=== PATIENT | male | born 1965 | race Caucasian/White ===

== ENCOUNTER 2020-06-21 07:12 | Outpatient (REF) | payer MEDICAID, SELFPAY ==
--- NOTE | 2020-06-21 07:20 | MR_ITS ---
EXAMINATION: MR BRAIN WITHOUT CONTRAST CLINICAL INFORMATION: Cerebral microvascular disease, stroke. COMPARISON: Head CT 08/06/2017. TECHNIQUE: Multiplanar multisequence MRI of the brain was performed without contrast. FINDINGS: There is no acute infarct, hemorrhage, mass, or extra-axial fluid collection. Mild to moderate patchy foci of T2 hyperintensity are seen in the bilateral cerebral white matter most compatible with chronic microangiopathy. There is mild degree of brain parenchymal volume loss with commensurate prominence of the ventricles and sulci. The intradural right vertebral artery flow void is absent compatible with slow flow or occlusion. The remainder of the major arterial flow voids are present. The orbital contents appear normal. IMPRESSION: No acute intracranial abnormality identified. Nonspecific mild to moderate foci of T2 hyperintensity seen in the cerebral white matter presumably reflecting chronic microangiopathy. Intradural right vertebral artery flow void is absent compatible with slow flow or occlusion.
== END 2020-06-21 07:13 | disposition home or self-care (01) ==
LOC: HO.MRI 07:12
PROVIDERS: Visit Provider Psychiatry & Neurology Neurology
DX: I67.9 Cerebrovascular disease, unspecified (principal); I63.9 Cerebral infarction, unspecified
CPT/HCPCS: 70551

== ENCOUNTER 2020-07-12 14:00 | Outpatient (REF) | payer MEDICAID, SELFPAY ==
[2020-07-12 15:07] LABS: Estimated Average Glucose 111 mg/dL; Hemoglobin A1c % 5.5 %
== END 2020-07-12 14:01 | disposition home or self-care (01) ==
LOC: HO.LAB 14:00
DX: E11.9 Type 2 diabetes mellitus without complications (principal)
CPT/HCPCS: 83036

== ENCOUNTER → 2021-03-24 09:21 | Outpatient (BNVA) | payer MEDICAID, SELFPAY | PROVIDERS: Visit Provider Urology | DX: E29.1 Testicular hypofunction (principal); N52.9 Male erectile dysfunction, unspecified | CPT/HCPCS: 99202 ==

== ENCOUNTER → 2021-05-02 15:09 | Outpatient (BNVA) | payer MEDICAID, SELFPAY | PROVIDERS: Visit Provider Urology | DX: N52.9 Male erectile dysfunction, unspecified (principal); E29.1 Testicular hypofunction | CPT/HCPCS: 99212 ==

== ENCOUNTER → 2021-07-21 15:07 | Outpatient (BNVA) | payer MEDICAID, SELFPAY | PROVIDERS: Visit Provider Urology | DX: N52.9 Male erectile dysfunction, unspecified (principal); E29.1 Testicular hypofunction | CPT/HCPCS: 99212 ==

== ENCOUNTER → 2021-08-16 13:19 | Outpatient (BNVA) | payer MEDICAID, SELFPAY | PROVIDERS: Visit Provider Urology ==

== ENCOUNTER → 2022-02-16 10:43 | Outpatient (BNVA) | payer MEDICAID, SELFPAY | PROVIDERS: PCP Family Medicine; Visit Provider Urology | DX: N52.9 Male erectile dysfunction, unspecified (principal) | CPT/HCPCS: 99212 ==

== ENCOUNTER → 2023-02-27 14:57 | Outpatient (BNVA) | payer OTHER, SELFPAY | PROVIDERS: PCP Family Medicine; Visit Provider Urology | DX: N52.9 Male erectile dysfunction, unspecified (principal); E29.1 Testicular hypofunction | CPT/HCPCS: 99212 ==

== ENCOUNTER 2023-04-30 13:06 | Outpatient (AMB) | payer OTHER, SELFPAY ==
--- NOTE | 2023-04-30 13:06 | MHC.OFFVIS ---
Intake Intake Visit Reasons: 2M Testosterone(set) Intake Note: Patient is present for Telephone Follow Up Testosterone Urology Med: Sildenafil, Testosterone Antibiotic Allergy: Sulfa antibiotics Blood Thinner: None Pharmacy: [facility] Allergies prednisone [PREDNISONE] Allergy (Severe, Verified 04/30/23 13:11) SEVER HYPERGLYCEMIA Sulfa (Sulfonamide Antibiotics) [SULFA (SULFONAMIDE ANTIBIOTICS)] Allergy (Intermediate, Verified 04/30/23 13:11) HIVES sulfamethoxazole Allergy (Unknown, Verified 04/30/23 13:11) Unknown intolerance to colchicine and Allergy (Unknown, Uncoded 04/30/23 13:11) Unknown Medication List - Last Reconciled 04/30/23 by Johnathon Bliss MD allopurinol 300 mg PO DAILY alprazolam (Xanax) 0.5 mg PO BID bupropion HCl (Wellbutrin XL) 300 mg PO QAM cholecalciferol (vitamin D3) 50 mcg PO DAILY clomiphene citrate 50 mg PO .mon,wed,fri 90 days cyanocobalamin (vitamin B-12) 1,000 mcg PO DAILY metoprolol succinate ER 25 mg PO DAILY mycophenolate mofetil (CellCept) 500 mg PO BID mycophenolate mofetil 0 mg PO needle (disp) 18 G (BD Regular Bevel [place]) As directed once per week for injection needle (disp) 22 G (BD Regular Bevel [place]) as directed once per week for injection nifedipine ER 30 mg PO DAILY sildenafil 100 mg PO DAILY PRN 30 days syringe (disposable) (BD Luer-Gregg Syringe) Testosterone injection weekly tacrolimus (Prograf) 1 mg PO Q12H testosterone cypionate (Depo-Testosterone) 80 mg (0.4 mL) subcut QWEEK 4 weeks trazodone 25 mg PO DAILY HPI HPI Comments History of Present Illness Details Pilar is a pleasant male. He is a patient of Dr Remy. He is seen for the following urologic conditions - erectile dysfunction - prior borderline, low testosterone medical background significant for liver transplantation performed 1992. long-term immunosuppression. Telemedicine Evaluation 15 min Consultation Doximity Argenis Video attempted Good response to restarting testosterone T level 470 Did ask about hCG Currently unavailable Hypogonadism Currently not on replacement Initial T level of 340, free T 7.5 which is in normal range and low sex hormone binding globulin which explains low total T but normal free T Labs - T 254 F 4.5 L 6.1 07/06 394 F 3.9 L 4.4, 02/04 T 341 F 7, 09/06 T 282 F 6, 04/07 T 470 Previous trial of clomiphene unsuccessful, previous testosterone replacement Erectile dysfunction Sildenafil prescription successful [facility] Medical History Depression Erectile dysfunction Gout Obsessive compulsive personality disorder Olecranon bursitis of right elbow Turf toe Surgical History Liver transplant status Social History Alcohol intake: never Patient Tobacco Use Status: Never used Tobacco Review of Systems Const All systems reviewed & are unremarkable except as noted in HPI and below Reports no additional complaints Resp Reports no additional complaints GI Reports no additional complaints Reports as per HPI Musc Reports no additional complaints Physical Exam Telemedicine evaluation Appropriate responses Regular breathing rate and rhythm HEENT Head: Yes normal to inspection Ears: hearing grossly normal bilaterally Eyes General: appearance normal, both eyes and all related structures Neck Neck: Yes normal visual inspection Chest Chest palpation & inspection: normal inspection of the chest Resp Effort & Inspection: normal respiratory effort and able to speak in complete sentences Assessment & Plan Assessment & Plan (1) Erectile dysfunction: Code(s): N52.9 - Male erectile dysfunction, unspecified (2) Hypogonadism in male: Code(s): E29.1 - Testicular hypofunction Plan Six month follow-up Orders: Orders Prostate Specific Antigen 6 Months E29.1 - Testicular hypofunction Testosterone, Total 6 Months E29.1 - Testicular hypofunction Complete Blood Count no Diff 6 Months E29.1 - Testicular hypofunction Medications: Discontinued clomiphene citrate Discontinued Reason: Patient Completed Course 50 mg PO .mon,wed,fri 40 tabs 0RF 90 days E29.1 - Testicular hypofunction Patient Instructions: Imaging studies, laboratory and physical exam results were discussed and reviewed in detail. No major barriers to patient understanding were identified. An opportunity to ask questions regarding the treatment plan was provided. All questions were answered. The patient expressed understanding and agreement with the above treatment plan. The patient is aware they should contact our office by phone for worsening of their current condition or the appearance of new urologic symptoms. Compliance is encouraged with any medications and followup testing that is ordered. It is a privilege to participate in the urologic care of your patient. If you have any questions or concerns regarding treatment for the above conditions, or other urologic issues, please do not hesitate to contact me. The office telephone contact is [phone]. This note is constructed using voice recognition software. While every effort has been made to ensure accuracy line assembly utility worker errors may have been included. Yours sincerely, Dr Johnathon Bliss MD, [facility] - Urology Providers of Expert, Compassionate Care for the Genitourinary System Telehealth Telehealth Location of provider rendering services: practice address Location of patient: address on file Patient Identification confirmed using: Name, : Yes Telehealth method: voice only Patient verbally consented to treatment: Yes Patient verbally consented to billing insurance company: Yes Patient informed of any privacy concerns related to visit: Yes Coding Level of Care Code Tele Est Pt Level 3 (92731) Diagnoses Erectile dysfunction N52.9 Hypogonadism in male E29.1
== END 2023-04-30 13:34 | disposition home or self-care (01) ==
LOC: HO.HUSH 13:06
PROVIDERS: PCP Family Medicine; Visit Provider Urology
DX: N52.9 Male erectile dysfunction, unspecified (principal); E29.1 Testicular hypofunction
CPT/HCPCS: 99213

== ENCOUNTER → 2023-04-30 13:06 | Outpatient (BNVA) | payer OTHER, SELFPAY | PROVIDERS: PCP Family Medicine; Visit Provider Urology ==

== ENCOUNTER 2023-12-26 10:01 | Outpatient (AMB) | payer OTHER, SELFPAY ==
--- NOTE | 2023-12-26 10:07 | A.OFFVIS_ITS ---
Intake Intake Visit Reasons: 8M CBC/PSA/Testo(set)Confirmed Intake Note: Patient presents today for a follow up on: CBC/NET APPLICATION SUPPORT SPECIALIST/Testo Meds- Sildenafil, Testosterone, Allergies to Antibiotic- Sulfa Blood Thinner- None Chemists Required: No Accompanied by: Self / Same As Patient Allergies prednisone [PREDNISONE] Allergy (Severe, Verified 12/26/23 10:31) SEVER HYPERGLYCEMIA Sulfa (Sulfonamide Antibiotics) [SULFA (SULFONAMIDE ANTIBIOTICS)] Allergy (Intermediate, Verified 12/26/23 10:31) HIVES sulfamethoxazole Allergy (Unknown, Verified 12/26/23 10:31) Unknown intolerance to colchicine and Allergy (Unknown, Uncoded 12/26/23 10:31) Unknown Medication List - Last Reconciled 12/26/23 by Johnathon Bliss MD allopurinol 300 mg PO DAILY bupropion HCl XL (Wellbutrin XL) 300 mg PO QAM cholecalciferol (vitamin D3) 50 mcg PO DAILY cyanocobalamin (vitamin B-12) 1,000 mcg PO DAILY mycophenolate mofetil (CellCept) 500 mg PO BID needle (disp) 18 G (BD Regular Bevel [place]) As directed once per week for injection needle (disp) 22 G as directed once per week for injection nifedipine ER 30 mg PO DAILY sildenafil 100 mg PO DAILY PRN 30 days syringe with needle, safety As directed for weekly Testosterone injection tacrolimus (Prograf) 1 mg PO Q12H testosterone cypionate (Depo-Testosterone) 80 mg (0.4 mL) subcut QWEEK 4 weeks trazodone 25 mg PO DAILY HPI HPI Comments History of Present Illness Details Pilar is a pleasant male. He is a patient of Dr Remy. He is seen for the following urologic conditions - erectile dysfunction - prior borderline, low testosterone medical background significant for liver transplantation performed 1992. long- term immunosuppression. Continue good response to testosterone T level 530, PSA 0.5 Continue six-month follow-up with labs Hypogonadism Currently on replacement Initial T level of 340, free T 7.5 which is in normal range and low sex hormone binding globulin which explains low total T but normal free T Labs - T 254 F 4.5 L 6.1 07/06 394 F 3.9 L 4. 4, 02/04 T 341 F 7, 09/06 T 282 F 6, 04/07 T 470, 01/07 T 530 PSA 0.5 Previous trial of clomiphene unsuccessful, previous testosterone replacement Erectile dysfunction Sildenafil prescription successful [facility] Medical History Obsessive compulsive personality disorder Depression Erectile dysfunction Olecranon bursitis of right elbow Turf toe Gout Surgical History Liver transplant status Social History Alcohol intake: never Patient Tobacco Use Status: Never used Tobacco Review of Systems Const Denies chills and Denies fever(s) Card Reports no additional complaints and Denies syncope Resp Denies cough GI Denies abdominal pain and Denies heartburn Reports as per HPI and Denies change in libido Neuro Denies syncope Psych Denies change in libido Endo Denies change in libido Physical Exam Const General: cooperative, healthy appearing, comfortable and no acute distress Orientation/consciousness: patient oriented x3 HEENT Face and sinus: Yes normal facial exam Mouth: moist mucous membranes Neck Neck: Yes normal visual inspection, Yes full ROM and Yes trachea midline Chest Chest palpation & inspection: normal inspection of the chest Resp Effort & Inspection: normal respiratory effort, able to speak in complete sentences and no respiratory distress GI Inspection: Yes normal to inspection Back/Spine/Pelvis Cervical Spine: normal cervical lordosis Thoracic/Lumbar Spine: thoracic and lumbar spine normal to inspection Skin General skin exam: no rashes or lesions noted Neuro General: patient oriented x3, gait normal, tone normal and moves all extremities Extrem General: Yes normal to inspection and Yes capillary refill normal Assessment & Plan Assessment & Plan (1) Erectile dysfunction: Code(s): N52.9 - Male erectile dysfunction, unspecified (2) Hypogonadism in male: Code(s): E29.1 - Testicular hypofunction Plan Six-month follow-up Orders: Orders Testosterone, Total 6 Months E29.1 - Testicular hypofunction Complete Blood Count no Diff 6 Months E29.1 - Testicular hypofunction Prostate Specific Antigen 6 Months E29.1 - Testicular hypofunction Medications: Refilled testosterone cypionate (Depo-Testosterone) Weekly injection Remember lab work 2 weeks before office visit 80 mg (0.4 mL) subcut QWEEK 4 weeks 4 mL 5RF E29.1 - Testicular hypofunction, [id number] Patient Instructions: Imaging studies, laboratory and physical exam results were discussed and reviewed in detail. No major barriers to patient understanding were identified. An opportunity to ask questions regarding the treatment plan was provided. All questions were answered. The patient expressed understanding and agreement with the above treatment plan. The patient is aware they should contact our office by phone for worsening of their current condition or the appearance of new urologic symptoms. Compliance is encouraged with any medications and followup testing that is ordered. It is a privilege to participate in the urologic care of your patient. If you have any questions or concerns regarding treatment for the above conditions, or other urologic issues, please do not hesitate to contact me. The office telephone contact is [phone]. This note is constructed using voice recognition software. While every effort has been made to ensure accuracy humanities division chair errors may have been included. Yours sincerely, Dr Johnathon Bliss MD, [facility] - Urology Providers of Expert, Compassionate Care for the Genitourinary System Coding Level of Care Code Est Pt Level 3 (83156) Diagnoses Erectile dysfunction N52.9 Hypogonadism in male E29.1
== END 2023-12-26 10:57 | disposition home or self-care (01) ==
PROVIDERS: PCP Family Medicine; Visit Provider Urology
DX: N52.9 Male erectile dysfunction, unspecified (principal); E29.1 Testicular hypofunction
CPT/HCPCS: 99213

== ENCOUNTER → 2023-12-26 10:01 | Outpatient (BNVA) | payer OTHER, SELFPAY | PROVIDERS: PCP Family Medicine; Visit Provider Urology | DX: E29.1 Testicular hypofunction (principal); N52.9 Male erectile dysfunction, unspecified; Z79.899 Other long term (current) drug therapy; Z94.4 Liver transplant status | CPT/HCPCS: 99212 ==

== ENCOUNTER 2024-06-26 15:08 | Outpatient (AMB) | payer OTHER, SELFPAY ==
--- NOTE | 2024-06-26 15:48 | MHC.OFFVIS ---
Intake Visit Reasons: 6m PSA/Testo(set) Intake Note: Patient is Present for Follow Up Urology Medication: Sildenafil, Testosterone Antibiotic Allergies: Sulfa Blood Thinners: None Allergies prednisone [PREDNISONE] Allergy (Severe, Verified 12/26/23 10:31) SEVER HYPERGLYCEMIA Sulfa (Sulfonamide Antibiotics) [SULFA (SULFONAMIDE ANTIBIOTICS)] Allergy (Intermediate, Verified 12/26/23 10:31) HIVES sulfamethoxazole Allergy (Unknown, Verified 12/26/23 10:31) Unknown intolerance to colchicine and Allergy (Unknown, Uncoded 12/26/23 10:31) Unknown Medication List - Last Reconciled 06/26/24 by Johnathon Bliss MD allopurinol 300 mg PO DAILY bupropion HCl XL (Wellbutrin XL) 300 mg PO QAM cholecalciferol (vitamin D3) 50 mcg PO DAILY cyanocobalamin (vitamin B-12) 1,000 mcg PO DAILY mycophenolate mofetil (CellCept) 500 mg PO BID needle (disp) 18 G (BD Regular Bevel [place]) As directed once per week for injection needle (disp) 22 G as directed once per week for injection nifedipine ER 30 mg PO DAILY sildenafil 100 mg PO DAILY PRN 30 days syringe with needle, safety As directed for weekly Testosterone injection tacrolimus (Prograf) 1 mg PO Q12H testosterone cypionate (Depo-Testosterone) 80 mg (0.4 mL) subcut QWEEK 4 weeks trazodone 25 mg PO DAILY HPI Comments Details: Pilar is a pleasant male. He is a patient of Dr Remy. He is seen for the following urologic conditions - erectile dysfunction - prior borderline, low testosterone medical background significant for liver transplantation performed 1992. long-term immunosuppression. Continue good response to testosterone T level 07/09 - 530, PSA 0.5 Continue six-month follow-up with labs Hypogonadism Currently on replacement - testosterone injection 80 mg weekly Initial T level of 340, free T 7.5 which is in normal range and low sex hormone binding globulin which explains low total T but normal free T Labs - T 254 F 4.5 L 6.1 07/06 394 F 3.9 L 4.4, 02/04 T 341 F 7, 09/06 T 282 F 6, 04/07 T 470, 01/07 T 530 PSA 0.5, 07/09 T 590 Previous trial of clomiphene unsuccessful, previous testosterone replacement Erectile dysfunction Sildenafil prescription successful PFSH Medical History Obsessive compulsive personality disorder Depression Erectile dysfunction Olecranon bursitis of right elbow Turf toe Gout Surgical History Liver transplant status Social History Alcohol intake: never Patient Tobacco Use Status: Never used Tobacco Review of Systems Const Denies chills and Denies fever(s) Card Reports no additional complaints and Denies syncope Resp Denies cough GI Denies abdominal pain and Denies heartburn Reports as per HPI and Denies change in libido Neuro Denies syncope Psych Denies change in libido Endo Denies change in libido Physical Exam Const General: cooperative, healthy appearing, comfortable and no acute distress Orientation/consciousness: patient oriented x3 HEENT Face and sinus: Yes normal facial exam Mouth: moist mucous membranes Neck Neck: Yes normal visual inspection, Yes full ROM and Yes trachea midline Chest Chest palpation & inspection: normal inspection of the chest Resp Effort & Inspection: normal respiratory effort, able to speak in complete sentences and no respiratory distress GI Inspection: Yes normal to inspection Back/Spine/Pelvis Cervical Spine: normal cervical lordosis Thoracic/Lumbar Spine: thoracic and lumbar spine normal to inspection Skin General skin exam: no rashes or lesions noted Neuro General: patient oriented x3, gait normal, tone normal and moves all extremities Extrem General: Yes normal to inspection and Yes capillary refill normal Assessment & Plan Assessment & Plan (1) Hypogonadism in male: Code(s): E29.1 - Testicular hypofunction Category: Medical (2) Erectile dysfunction: Code(s): N52.9 - Male erectile dysfunction, unspecified Category: Medical Plan Six-month follow-up lab work tele Orders: Orders Testosterone, Total 6 Months E29.1 - Testicular hypofunction Prostate Specific Antigen 6 Months E29.1 - Testicular hypofunction Complete Blood Count no Diff 6 Months E29.1 - Testicular hypofunction Patient Instructions: Imaging studies, laboratory and physical exam results were discussed and reviewed in detail. No major barriers to patient understanding were identified. An opportunity to ask questions regarding the treatment plan was provided. All questions were answered. The patient expressed understanding and agreement with the above treatment plan. The patient is aware they should contact our office by phone for worsening of their current condition or the appearance of new urologic symptoms. Compliance is encouraged with any medications and followup testing that is ordered. It is a privilege to participate in the urologic care of your patient. If you have any questions or concerns regarding treatment for the above conditions, or other urologic issues, please do not hesitate to contact me. The office telephone contact is [phone]. This note is constructed using voice recognition software. While every effort has been made to ensure accuracy office auditor errors may have been included. Yours sincerely, Dr Johnathon Bliss MD, [facility] - Urology Providers of Expert, Compassionate Care for the Genitourinary System Coding Level of Care Code Est Pt Level 3 (91102) Diagnoses Hypogonadism in male E29.1 Erectile dysfunction N52.9
== END 2024-06-26 16:06 | disposition home or self-care (01) ==
PROVIDERS: PCP Family Medicine; Visit Provider Urology
DX: E29.1 Testicular hypofunction (principal); N52.9 Male erectile dysfunction, unspecified
CPT/HCPCS: 99213

== ENCOUNTER → 2024-06-26 15:08 | Outpatient (BNVA) | payer OTHER, SELFPAY | PROVIDERS: PCP Family Medicine; Visit Provider Urology | DX: E29.1 Testicular hypofunction (principal); N52.9 Male erectile dysfunction, unspecified | CPT/HCPCS: 99212 ==

== ENCOUNTER 2025-02-17 14:50 | Outpatient (AMB) | payer OTHER, SELFPAY ==
--- OUTSIDE RECORDS SUMMARY | 2025-02-17 14:55 | XMS_ITS | Clinical Summary ---
Author Organization [facility] Address [address] [place] [address] Phone Care Team Providers Care Replenishment Buyer Name Role Phone Jose Ford DO Primary Care Provider Allergies Active Allergy Reactions Criticality Noted Date Comments Amoxicillin-Pot Clavulanate Other (see comments) 11/08/2020 Prednisone Other (see comments) 11/04/2018 PT STATES BLOOD SUGAR GOES UP. Sulfa Antibiotics Rash Low 11/08/2020 Sulfamethoxazole-Trimet hoprim Other (see comments) 05/15/2021 Medications ARIPiprazole (ABILIFY) 2 MG tablet Take 1 tablet by mouth 1 (one) time each day Active B Complex capsule Take 1 tablet by mouth daily 1 Active NIFEdipine XL (PROCARDIA XL) 30 MG 24 hr tablet Take 30 mg by mouth 2 (two) times a day 1 Active mirtazapine (REMERON) 45 MG tablet Take 45 mg by mouth at bed time 1 Active ketoconazole (NIZORAL) 2 % shampoo SHAMPOO WITH EVERY DAY. LEAVE IN FOR 5 MINUTES THEN RINSE DIRECTED 1 Active buPROPion SR (WELLBUTRIN SR) 200 MG 12 hr tablet Take 200 mg by mouth 2 (two) times a day 1 Active cyanocobalamin (VITAMIN B-12) 1000 MCG tablet Take 1,000 mcg by mouth 1 (one) time each day 1 Active sildenafil (VIAGRA) 100 MG tablet TAKE 1 TABLET BY MOUTH DAILY NEEDED FOR SEXUAL ACTIVITY. ADMINISTER 60 MINUTES BEFORE INTENDED ACTIVITY 1 Active Testosterone 1.62 % gel APPLY 2 PUMPS TOPICALLY DAILY FOR 30 DAYS. ALTERNATE SHOULDERS ON ALTERNATE DAYS 1 Active traZODone (DESYREL) 100 MG tablet TAKE 3 TABLETS BY MOUTH EVERY NIGHT 2 Active tacrolimus (PROGRAF) 1 MG capsule Take 1 mg by mouth in the morning and 1 mg in the evening. 2mg in the am, 1 mgt pm daily. 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 Avoid Nephrotoxins Optimize BP and DM control Assessment & Plan (01/26/2024 11:40 PM EDT): Stable Creat 1.05, eGFR 83 Normal Lytes, No Anemia Check urine alb/creat ratio Hypertensive renal disease 11/08/2020 Proteinuria 11/08/2020 Disorder of kidney and/or ureter 07/26/2016 Hypertensive disorder 03/30/2016 Overview (01/26/2024): Follow low NA diet Avoid NSAIDs/OTC Decongestant Medications Target BP <120/80 Assessment & Plan (01/26/2024 11:42 PM EDT): Blood pressure well controlled On single therapy Nifedipine XL 30 mg QD No Edema No medication changes made Resolved Problems Problem Noted Date Diagnosed Date Resolved Date Hyperglycemia 10/17/2021 02/20/2022 H/O: liver recipient 11/08/2020 022 Gout 03/17/2014 02/20/2022 Encounters Date Type Department Care Team Description 02/07/2025 Orders Only [facility] [address] [address] Florence Vasquez ARNP Chronic kidney disease stage 2; Persistent proteinuria; Hypertensive disorder; Hypo-osmolality and hyponatremia 01/13/2025 Office Communication [facility] [address] [address] Russ Gabriel MD 01/11/2025 11:00 AM EDT Office Visit [facility] [address] [address] Russ Gabriel MD Persistent proteinuria (Primary Dx); Liver transplant status (HCC) 01/08/2025 Orders Only [facility] [address] [address] Florence Vasquez ARNP Hypo-osmolality and hyponatremia 01/07/2025 Documentation Only [facility] [address] [address] Cielo Ware MA 01/05/2025 Telephone [facility] [address] [address] Violette Gregory MA 01/05/2025 Telephone [facility] [address] [address] Violette Gregory MA 12/24/2024 4:15 PM EDT Office Visit [facility] [address] [address] Florence Vasquez ARNP Chronic kidney disease stage 2 (Primary Dx); Persistent proteinuria; Hypertensive disorder; Hypo-osmolality and hyponatremia from Last 3 Months Immunizations Immunization Administration Dates Next Due Influenza, Quadrivalent, Pre servative Free 07/26/2016 Influenza, Unspecified 09/11/2021,2019,08/08/2019,2017,07/05/2017,08/27/2015,07/01/2014,1 ,06/16/2012,05/22/2011, 010 Pfizer SARS-COV-2 05/09/2021,12/08/2020,11/18/19 21 Family History Medical History Relation Comments Heart disease Mother Relation Status Comments Father Unknown Mother Unknown Social History Tobacco Use Types Packs/Day Years Used Date Smoking Tobacco: Former Cigars Smokeless Tobacco: Never Tobacco Cessation:Counseling Given: Not Answered Alcohol Use Standard Drinks/Week Comments No 0 (1 standard drink = 0.6 oz pur e alcohol) Sex and Gender Information Value Date Recorded Sex Assigned at Not on file Legal Sex Male 4:40 PM EST Gender Identity Not on file Sexual Orientation Not on file Last Filed Vital Signs Vital Sign Reading Time Taken Comments Blood Pressure 198/80 01/11/2025 11:19 AM EDT Pulse 88 01/11/2025 11:19 AM EDT Temperature - - Respiratory Rate - - Oxygen Saturation 99% 01/11/2025 11:19 AM EDT Inhaled Oxygen Concentration - - Weight 67.4 kg (148 lb 9.6 oz) 01/11/2025 11:19 AM EDT Height 167.6 cm (5' 6 ) 05/15/2021 3:25 PM EDT Body Mass Index 23.98 05/15/2021 3:25 PM EDT Plan of Treatment Upcoming Encounters Date Type Department Care Team (Late st Contact Info) Description 02/22/2025 1:00 PM EDT Office Visit [facility] [address] [address] Florence Vasquez ARNP [address] [phone] Health Maintenance Due Date Last Done Comments Hepatitis B Vaccine (1 of 3 - 19+ 3-dose series) 1986 Pneumococcal Vaccine: 50+ Ye ars (1 of 2 - PCV) 1986 Colorectal Cancer Screening: Annual FOBT 2016 Colorectal Cancer Screening: Colonoscopy 2016 Colorectal Cancer Screening: Sigmoidoscopy 2016 Influenza Vaccine (Season Ended) 2025 09/11/2021, 07/25/2020, 08/08/2019, Additional history exists Procedures Procedure Name Priority Date/Time Associated Diagnosis Comments URINE ALBUMIN / CREATININE RATIO Routine 01/18/2025 11:44 AM EDT PROTEIN / CREATININE RATIO, URINE Routine 01/18/2025 11:44 AM EDT RENAL FUNCTION PANEL Routine 01/18/2025 11:44 AM EDT BASIC METABOLIC PANEL Routine 01/18/2025 11:44 AM EDT Hypo-osmolality and hyponatremia INTERPRETATION Routine 01/11/2025 12:07 PM EDT HEPATITIS PANEL, ACUTE Routine 12:07 PM EDT Persistent proteinuria Liver transplant status (HCC) IMMUNOFIXATION ELECTROPHORESIS Routine 01/11/2025 12:07 PM EDT Persistent proteinuria Liver transplant status (HCC) KAPPA/LAMBDA FREE LT CHAINS W/RATIO Routine 01/11/2025 12:07 PM EDT Persistent proteinuria Liver transplant status (HCC) C4 COMPLEMENT Routine 01/11/2025 12:07 PM EDT Persistent proteinuria Liver transplant status (HCC) C3 COMPLEMENT Routine 01/11/2025 12:07 PM EDT Persistent proteinuria Liver transplant status (HCC) EDENILSON W/REFLEX Routine 01/11/2025 12:07 PM EDT Persistent proteinuria Liver transplant status (HCC) PROTEIN / CREATININE RATIO, URINE Routine 01/11/2025 12:07 PM EDT Persistent proteinuria Liver transplant status (HCC) URINE ALBUMIN / CREATININE RATIO Routine 01/11/2025 12:07 PM EDT Persistent proteinuria Liver transplant status (HCC) URINALYSIS WITH MICROSCOPIC Routine 01/11/2025 12:07 PM EDT Persistent proteinuria Liver transplant status (HCC) RENAL FUNCTION PANEL Routine 01/11/2025 12:07 PM EDT Persistent proteinuria Liver transplant status (HCC) MICROSCOPIC EXAMINATION - DO NOT USE Routine 01/11/2025 12:07 PM EDT PROTEIN / CREATININE RATIO, URINE Routine 01/07/2025 3:42 PM EDT Hypo-osmolality and hyponatremia Chronic kidney disease stage 2 Persistent proteinuria URINE ALBUMIN / CREATININE RATIO Routine 01/07/2025 3:42 PM EDT Hypo-osmolality and hyponatremia Chronic kidney disease stage 2 Persistent proteinuria BASIC METABOLIC PANEL Routine 01/06/2025 8:57 AM EDT Chronic kidney disease stage 2 Persistent proteinuria Hypertensive disorder BASIC METABOLIC PANEL Routine 12/22/2024 10:30 AM EDT RENAL FUNCTION PANEL Routine 12/22/2024 10:30 AM EDT Chronic kidney disease stage 2 Hypertensive disorder Hypo-osmolality and hyponatremia URINE ALBUMIN / CREATININE RATIO Routine 12/22/2024 10:25 AM EDT PROTEIN / CREATININE RATIO, URINE Routine 12/22/2024 10:25 AM EDT URINALYSIS WITH MICROSCOPIC Routine 12/22/2024 10:25 AM EDT MICROSCOPIC EXAMINATION - DO NOT USE Routine 12/22/2024 10:25 AM EDT from Last 3 Months Results * (ABNORMAL) Protein, Total, Random Urine w/Creatinine (Protein/Creat Ratio) (01/18/2025 11:44 AM EDT) Only the most recent of4 resultswithin the time period is included. Creatinine, Ur 40.9 Not Estab. mg/dL [facility] Protein, Ur 16.8 Not Estab. mg/dL [facility] Urine Protein/Creati nine Ratio 411(H) 0 - 200 mg/g creat [facility] 01/18/2025 11:4 4 AM EDT 01/18/2025 Florence Vasquez [facility] LAB URINE ORDERABLES Final Result Performing Organization Address [facility] de Phone Number [facility] [address] [place] [address] * (ABNORMAL) Urine Albumin / Creatinine Ratio (01/18/2025 11:44 AM EDT) Only the most recent of4 resultswithin the time period is included. Albumin, Urine 83.3 Not Estab. ug/mL [facility] Albumin/Creatin ine Ratio 204(H) 0 - 29 mg/g creat [facility] Comment: ? Normal: ?0 - ??29 ? Moderately increased: 30 - 300 ? Severely increased: ? >300 01/18/2025 11:4 4 AM EDT 01/18/2025 Florence Vasquez [facility] LAB URINE ORDERABLES Final Result Performing Organization Address [facility] de Phone Number [facility] [place] [address] [place] [address] * (ABNORMAL) Renal Function Panel (01/18/2025 11:44 AM EDT) Only the most recent of3 resultswithin the time period is included. Pathologist [facility] Glucose 94 70 - 99 mg/dL [facility] BUN 21 6 - 24 mg/dL [facility] Creatinine 1.05 0.76 - 1.27 mg/dL [facility] eGFR CKD-EPI CR 2020 83 >59 mL/min/1.7 3 [facility] BUN/Creatinine Ratio 20 9 - 20 [facility] Sodium 135 134 - 144 mmol/L [facility] Potassium 4.5 3.5 - 5.2 mmol/L [facility] Chloride 101 96 - 106 mmol/L [facility] Bicarbonate (CO2) 16(L) 20 - 29 mmol/L [facility] Calcium 9.1 8.7 - 10.2 mg/dL [facility] Albumin 4.1 3.8 - 4.9 g/dL [facility] Phosphorus 3.0 2.8 - 4.1 mg/dL [facility] 01/18/2025 11:4 4 AM EDT 01/18/2025 Florence Vasquez [facility] LAB BLOOD ORDERABLES Final Result [facility] [place] [address] [place] [address] * (ABNORMAL) Basic metabolic panel (01/18/2025 11:44 AM EDT) Only the most recent of3 resultswithin the time period is included. Pathologist [facility] Glucose 97 70 - 99 mg/dL [facility] BUN 22 6 - 24 mg/dL [facility] Creatinine 0.96 0.76 - 1.27 mg/dL [facility] eGFR CKD-EPI CR 2020 92 >59 mL/min/1.7 3 [facility] BUN/Creatinine Ratio 23(H) 9 - 20 [facility] Sodium 137 134 - 144 mmol/L [facility] Potassium 4.4 3.5 - 5.2 mmol/L [facility] Chloride 101 96 - 106 mmol/L [facility] Calcium 9.2 8.7 - 10.2 mg/dL [facility] Bicarbonate (CO2) 17(L) 20 - 29 mmol/L [facility] Blood specimen (specimen) Venous blood / Unknown 01/18/2025 11:44 AM EDT 01/18/2025 Florence HUYNH LAB BLOOD ORDERABLES Final Result [facility] [place] [address] [place] [address] * INTERPRETATION (01/11/2025 12:07 PM EDT) Interpretation Comment [facility] Comment: Not infected with HCV unless early or acute infection is suspected (which may be delayed in an immunocompromised individual), or other evidence exists to indicate HCV infection. 01/11/2025 12:0 7 PM EDT 01/11/2025 Russ Gabriel MD LAB [id number] SOLICITED RESULTS Final Result [facility] [address], [address] [place] [address] * Microscopic Examination (01/11/2025 12:07 PM EDT) Only the most recent of2 resultswithin the time period is included. WBC, Urine None seen 0 - 5 /hpf [facility] RBC, Urine None seen 0 - 2 /hpf [facility] Squamous Epithelial, Urine None seen 0 - 10 /hpf [facility] Casts None seen None seen /lpf [facility] Bacteria, Urine None seen None seen/Few [facility] 01/11/2025 12:0 7 PM EDT 01/11/2025 Russ Gabriel MD LAB MICROBIOLOGY - GENERAL OR DERABLES Final Result Performing Organization Address City/[facility]/ZIP Co de Phone Number [facility] [address] [place] [address] * EDENILSON W/Reflex (01/11/2025 12:07 PM EDT) EDENILSON Negative Negative [facility] 01/11/2025 12:0 7 PM EDT 01/11/2025 Russ Gabriel MD LAB BLOOD ORDERABLES Final Re sult Performing Organization Address City/[facility]/ZIP Co de Phone Number [facility] [address] [place] [address] * (ABNORMAL) Free serum light chains (01/11/2025 12:07 PM EDT) Free [place] Lt Chains, S 46.0(H) 3.3 - 19.4 mg/L [facility] Free Lambda Lt Chains, S 35.4(H) 5.7 - 26.3 mg/L [facility] Free [place]/Lambda Ratio 1.30 0.26 - 1.65 [facility] Blood specimen (specimen) Venous blood / Unknown 01/11/2025 12:07 PM EDT 01/11/2025 Russ Gabriel MD LAB BLOOD ORDERABLES Final Re sult Performing Organization Address City/[facility]/ZIP Co de Phone Number [facility] [address] [place] [address] * Hepatitis Panel, Acute (01/11/2025 12:07 PM EDT) Hep A IgM Negative Negative [facility] [place] [phone] Comment: A negative anti-HAV IgM result suggests no recent or current HAV infection. Hep B Surface Ag Negative Negative [facility] [place] [phone] Hep B Core IgM Negative Negative [facility] [place] [phone] HCV Ab Non Reactive Non Reactive Lab or [place] Blood specimen (specimen) Venous blood / Unknown 01/11/2025 12:07 PM EDT 01/11/2025 Russ Gabriel MD LAB BLOOD ORDERABLES Final Re sult Performing Organization Address City/[facility]/ZIP Co de Phone Number [facility] [place] [address], [address] [place] [address] * (ABNORMAL) Urinalysis with microscopic (01/11/2025 12:07 PM EDT) Only the most recent of2 resultswithin the time period is included. Specific [place], Urine 1.013 1.005 - 1.030 [facility] [phone] pH Urine 5.5 5.0 - 7.5 [facility] Color, Urine Yellow Yellow [facility] [phone] Appearance Urine Clear Clear [facility] [place] [phone] WBC Esterase Urine Negative Negative [facility] Protein, Ur 2+(A) Negative/Tra ce [facility] Glucose, Ur Negative Negative [facility] Ketones, Urine 1+(A) Negative [facility] [place] Blood Urine Negative Negative [facility] [phone] Bilirubin Urine Negative Negative [facility] [place] Urobilinogen Urine 0.2 0.2 - 1.0 mg/dL [facility] Nitrite, Urine Negative Negative [facility] [place] Microscopic Examination See below: [facility] [phone] Comment:Microscopic was andreina cated and was performed. Urine specimen (specimen) Urine specimen obtained by clean catch procedure / Unknown 01/11/2025 12:07 PM EDT 01/11/2025 Russ Gabriel MD LAB URINE ORDERABLES Final Re sult [facility] [address] [place] [address] * (ABNORMAL) Immunofixation electrophoresis (01/11/2025 12:07 PM EDT) IgG 1,231 603 - 1,613 mg/dL [facility] IgA 448(H) 90 - 386 mg/dL [facility] IgM 48 20 - 172 mg/dL [facility] Immunofixation Result, Serum Comment(A ) [facility] Comment:Polyclonal increase detected in one or more immunoglobulins. Blood specimen (specimen) Venous blood / Unknown 01/11/2025 12:07 PM EDT 01/11/2025 Russ Gabriel MD LAB BLOOD ORDERABLES Final Re sult [facility] [address] [place] [address] * C3 complement (01/11/2025 12:07 PM EDT) C3 Complement 143 82 - 167 mg/dL [facility] Blood specimen (specimen) Venous blood / Unknown 01/11/2025 12:07 PM EDT 01/11/2025 Russ Gabriel MD LAB BLOOD ORDERABLES Final Re sult Performing Organization Address City/[facility]/ZIP Co de Phone Number [facility] [place] [address] [place] [address] * C4 complement (01/11/2025 12:07 PM EDT) C4 Complement 31 12 - 38 mg/dL [facility] Blood specimen (specimen) Venous blood / Unknown 01/11/2025 12:07 PM EDT 01/11/2025 Russ Gabriel MD LAB BLOOD ORDERABLES Final Re sult [facility] [address] [place] [address] from Last [address] [place] [address] [employer] Medicaid Care Teams Replenishment Buyer Relationship Specialty Start Date End Date Jose Ford DO [address] [place] [address] PCP - General Family Medicine 01/20/24
--- NOTE | 2025-02-17 15:11 | A.OFFVIS_ITS ---
Intake Visit Reasons: 8M labs Intake Note: Patient is present for 8M LABS Urology Medication:SILDENAFIL,TESTOSTERONE,ALLOPURINOL,VITAMIN B12 Antibiotic Allergy:SULFA Blood Thinner:NONE Warp Dyeing Vat Tender Required: No Allergies prednisone [PREDNISONE] Allergy (Severe, Verified 02/17/25 15:17) SEVER HYPERGLYCEMIA Sulfa (Sulfonamide Antibiotics) [SULFA (SULFONAMIDE ANTIBIOTICS)] Allergy (Intermediate, Verified 02/17/25 15:17) HIVES sulfamethoxazole Allergy (Unknown, Verified 02/17/25 15:17) Unknown intolerance to colchicine and Allergy (Unknown, Uncoded 02/17/25 15:17) Unknown HPI Comments Details: Pilar is a pleasant male. He is a patient of Dr Remy. He is seen for the following urologic conditions - erectile dysfunction - prior borderline, low testosterone medical background significant for liver transplantation performed 1992. long- term immunosuppression. Six-month follow-up Continue good response to testosterone T level 02/07 515 0.5 Prescriptions refilled Continue six-month follow-up with labs Hypogonadism Currently on replacement - testosterone injection 80 mg weekly Initial T level of 340, free T 7.5 which is in normal range and low sex hormone binding globulin which explains low total T but normal free T Labs - T 254 F 4.5 L 6.1 07/06 394 F 3.9 L 4.4, 02/04 T 341 F 7, 09/06 T 282 F 6, 04/07 T 470, 01/07 T 530 PSA 0.5, 07/09 T 590, 02/07 515 0.5 Previous trial of clomiphene unsuccessful, previous testosterone replacement Erectile dysfunction Sildenafil prescription successful [facility] Medical History Obsessive compulsive personality disorder Depression Erectile dysfunction Olecranon bursitis of right elbow Turf toe Gout Surgical History Liver transplant status Social History Alcohol intake: never Patient Tobacco Use Status: Never used Tobacco Review of Systems Const Denies chills and Denies fever(s) Card Reports no additional complaints and Denies syncope Resp Denies cough GI Denies abdominal pain and Denies heartburn Reports as per HPI and Denies change in libido Neuro Denies syncope Psych Denies change in libido Endo Denies change in libido Physical Exam Const General: cooperative, healthy appearing, comfortable and no acute distress Orientation/consciousness: patient oriented x3 HEENT Face and sinus: Yes normal facial exam Mouth: moist mucous membranes Neck Neck: Yes normal visual inspection, Yes full ROM and Yes trachea midline Chest Chest palpation & inspection: normal inspection of the chest Resp Effort & Inspection: normal respiratory effort, able to speak in complete sentences and no respiratory distress GI Inspection: Yes normal to inspection Back/Spine/Pelvis Cervical Spine: normal cervical lordosis Thoracic/Lumbar Spine: thoracic and lumbar spine normal to inspection Skin General skin exam: no rashes or lesions noted Neuro General: patient oriented x3, gait normal, tone normal and moves all extremities Extrem General: Yes normal to inspection and Yes capillary refill normal Assessment & Plan Assessment & Plan (1) Hypogonadism in male: Code(s): E29.1 - Testicular hypofunction Category: Medical (2) Erectile dysfunction: Code(s): N52.9 - Male erectile dysfunction, unspecified Category: Medical Plan Six-month follow-up lab work tele Orders: Orders Complete Blood Count no Diff 6 Months E29.1 - Testicular hypofunction Testosterone, Total 6 Months E29.1 - Testicular hypofunction Prostate Specific Antigen 6 Months E29.1 - Testicular hypofunction Patient Instructions: This note is constructed using voice recognition software. While every effort has been made to ensure accuracy commercial collector errors may have been included. Imaging studies, laboratory and physical exam results were discussed and reviewed in detail. No major barriers to patient understanding were identified. An opportunity to ask questions regarding the treatment plan was provided. All questions were answered. The patient expressed understanding and agreement with the above treatment plan. The patient is aware they should contact our office by phone for worsening of their current condition or the appearance of new urologic symptoms. Compliance is encouraged with any medications and followup testing that is ordered. It is a privilege to participate in the urologic care of your patient. If you have any questions or concerns regarding treatment for the above conditions, or other urologic issues, please do not hesitate to contact me. The office telephone contact is [phone]. Sincerely, Dr Johnathon Bliss MD, [facility] - Urology Compassionate Specialist Care for the Genitourinary System Coding Level of Care Code Est Pt Level 3 (14208) Complex EM visit Add On G2211 Diagnoses Hypogonadism in male E29.1 Erectile dysfunction N52.9
== END 2025-02-17 16:04 | disposition home or self-care (01) ==
LOC: HO.HUSH 14:51
PROVIDERS: PCP Family Medicine; Visit Provider Urology
DX: E29.1 Testicular hypofunction (principal); N52.9 Male erectile dysfunction, unspecified
CPT/HCPCS: 99213; G2211

== ENCOUNTER → 2025-02-17 14:50 | Outpatient (BNVA) | payer OTHER, SELFPAY | PROVIDERS: PCP Family Medicine; Visit Provider Urology | DX: E29.1 Testicular hypofunction (principal); N52.9 Male erectile dysfunction, unspecified | CPT/HCPCS: 99212 ==

== ENCOUNTER 2025-09-02 14:36 | Outpatient (AMB) | payer OTHER, SELFPAY ==
--- NOTE | 2025-09-02 14:59 | MHC.OFFVIS ---
Intake Visit Reasons: MRI Results Intake Note: Reason for Visit: MRI Results Urology Meds: Sildenafil, Testosterone Blood Thinners: None Labs: None Imaging: MRI 08/27/2025 Last PVR: [employer]ONE [employer] Advisor Required: No Allergies prednisone (PREDNISONE) Allergy (Severe, Verified 02/17/25 15:17) SEVER HYPERGLYCEMIA Sulfa (Sulfonamide Antibiotics) (SULFA (SULFONAMIDE ANTIBIOTICS)) Allergy (Intermediate, Verified 02/17/25 15:17) HIVES sulfamethoxazole Allergy (Unknown, Verified 02/17/25 15:17) Unknown intolerance to colchicine and Allergy (Unknown, Uncoded 02/17/25 15:17) Unknown HPI Comments Details: Pilar is a pleasant male. He is a patient of Dr Remy. He is seen for the following urologic conditions - erectile dysfunction - prior borderline, low testosterone Medical background significant for liver transplantation performed 1992. Long-term immunosuppression. Six-month follow-up Recent MRI with 3 cm partially exophytic left lower pole mass Discussed management options including surveillance He would like to move ahead with targeted ablation Continue good response to testosterone T level 02/07 515 0.5 Prescriptions refilled Hypogonadism Currently on replacement - testosterone injection 80 mg weekly Initial T level of 340, free T 7.5 which is in normal range and low sex hormone binding globulin which explains low total T but normal free T Labs - T 254 F 4.5 L 6.1 07/06 394 F 3.9 L 4.4, 02/04 T 341 F 7, 09/06 T 282 F 6, 04/07 T 470, 01/07 T 530 PSA 0.5, 07/09 T 590, 02/07 515 0.5 Previous trial of clomiphene unsuccessful, previous testosterone replacement Erectile dysfunction Sildenafil prescription [facility] Medical History Obsessive compulsive personality disorder Depression Erectile dysfunction Olecranon bursitis of right elbow Turf toe Gout Surgical History Liver transplant status Social History Alcohol intake: never Patient Tobacco Use Status: Never used Tobacco Review of Systems Const Denies chills and Denies fever(s) Card Reports no additional complaints and Denies syncope Resp Denies cough GI Denies abdominal pain and Denies heartburn Reports as per HPI and Denies change in libido Neuro Denies syncope Psych Denies change in libido Endo Denies change in libido Physical Exam Const General: cooperative, healthy appearing, comfortable and no acute distress Orientation/consciousness: patient oriented x3 HEENT Face and sinus: Yes normal facial exam Mouth: moist mucous membranes Neck Neck: Yes normal visual inspection, Yes full ROM and Yes trachea midline Chest Chest palpation & inspection: normal inspection of the chest Resp Effort & Inspection: normal respiratory effort, able to speak in complete sentences and no respiratory distress GI Inspection: Yes normal to inspection Back/Spine/Pelvis Cervical Spine: normal cervical lordosis Thoracic/Lumbar Spine: thoracic and lumbar spine normal to inspection Skin General skin exam: no rashes or lesions noted Neuro General: patient oriented x3, gait normal, tone normal and moves all extremities Extrem General: Yes normal to inspection and Yes capillary refill normal Assessment & Plan Assessment & Plan (1) Renal cancer: Code(s): C64.9 - Malignant neoplasm of unspecified kidney, except renal pelvis Category: Medical Plan Risks, benefits and alternatives to therapy were discussed. These include but are not limited to infection, bleeding, damage to local organs and tissues, need for further interventions. Anesthetic risks regarding cardiac arrhythmia, blood clots, and potential mortality were discussed. The patient understands the typical recovery time and the outpatient nature of the procedure. After consideration of these risks the patient gives full informed consent and they wish to move ahead with the procedure. - renal biopsy with cryotherapy Patient Instructions: This note is constructed using voice recognition software. While every effort has been made to ensure accuracy research food technologist errors may have been included. Imaging studies, laboratory and physical exam results were discussed and reviewed in detail. No major barriers to patient understanding were identified. An opportunity to ask questions regarding the treatment plan was provided. All questions were answered. The patient expressed understanding and agreement with the above treatment plan. The patient is aware they should contact our office by phone for worsening of their current condition or the appearance of new urologic symptoms. Compliance is encouraged with any medications and followup testing that is ordered. It is a privilege to participate in the urologic care of your patient. If you have any questions or concerns regarding treatment for the above conditions, or other urologic issues, please do not hesitate to contact me. The office telephone contact is [phone]. Sincerely, Dr Johnathon Bliss MD, [facility] - Urology Compassionate Specialist Care for the Genitourinary System Coding Level of Care Code Est Pt Level 4 (48903) Diagnoses Renal cancer C64.9
--- OUTSIDE RECORDS SUMMARY | 2025-09-02 18:45 | XMS_ITS | Clinical Summary ---
Author Organization [facility] Address [address] [place] [address] [address] [phone] Phone Care Team Providers Care Salon Supervisor Name Role Phone Elvia Ozuna NP Primary Care Provider [phone] Allergies Active Allergy Reactions Criticality Noted Date [...] by mouth at bed time 1 Active buPROPion SR (WELLBUTRIN SR) 200 MG 12 hr tablet Take 200 mg by mouth 2 (two) times a day 1 Active cyanocobalamin (VITAMIN B-12) 1000 MCG tablet Take 1,000 mcg by mouth 1 (one) time each day 1 Active traZODone (DESYREL) 100 MG tablet TAKE 3 TABLETS BY MOUTH EVERY NIGHT 2 Active tacrolimus (PROGRAF) 1 MG capsule Take 1 mg by mouth in the morning and 1 mg in the evening. 2mg in the am, 1 mgt pm daily. 2 Active cholecalciferol (VITAMIN D-3) 50 MCG (1999) capsule TAKE 1 CAPSULE BY MOUTH DAILY 30 capsule 11 3 Active sodium bicarbonate 650 MG tabletIndication s:Chronic kidney disease stage 2,Chronic metabolic acidosis Take 1 tablet (650 mg total) by mouth 1 (one) time each day 30 tablet 5 5 01/11/20 26 Active losartan (Cozaar) 50 MG tabletIndication s:Chronic kidney disease stage 2,Persistent proteinuria Take 1 tablet (50 mg total) by mouth 1 (one) time each day 90 tablet 3 5 08/23/20 25 Discontinu ed(Med List Maintenanc e) Active Problems Problem Noted Date Diagnosed Date Renal mass 08/23/2025 Chronic metabolic acidosis 02/22/2025 Hypo-osmolality and hyponatremia 03/14/2022 Liver transplant status [...] Encounters Date Type Department Care Team Description 08/26/2025 Telephone [facility] [address] [address] Florence Vasquez ARNP 08/23/2025 2:15 PM EST Office Visit [facility] [address] [address] Florence Vasquez ARNP Chronic kidney disease stage 2 (Primary Dx); Renal mass; Hypertensive disorder; Persistent proteinuria; Hypo-osmolality and hyponatremia 08/18/2025 Documentation Only [facility] [address] [address] Cielo Ware [place] 07/17/2025 Orders Only [facility] [address] [address] Florence Vasquez ARNP Chronic kidney disease stage 2; Persistent proteinuria; Hypo-osmolality and hyponatremia; Chronic metabolic acidosis 07/06/2025 Telephone [facility] [address] [address] Florence Vasquez ARNP 06/29/2025 7:45 AM EDT Office Visit [facility] [address] [address] Florence Vasquez ARNP Chronic kidney disease stage 2 (Primary Dx); Hypertensive disorder; Persistent proteinuria; Hypo-osmolality and hyponatremia; Chronic metabolic acidosis 06/25/2025 Orders Only [facility] [address] [address] Florence Vasquez ARNP Hypo-osmolality and hyponatremia 06/24/2025 Orders Only [facility] [address] [address] Florence Vasquez ARNP from Last 3 Months Immunizations Immunization Administration [...] Sign Reading Time Taken Comments Blood Pressure 160/80 08/23/2025 2:23 PM EST Pulse 88 08/23/2025 2:23 PM EST Temperature - - Respiratory Rate - - Oxygen Saturation 100% 06/29/2025 7:46 AM EDT Inhaled Oxygen Concentration - - Weight 69.6 kg (153 lb 6.4 oz) 08/23/2025 2:23 P M EST Height 167.6 cm (5' 6 ) 05/15/2021 3:25 PM EDT Body Mass Index 24.76 05/15/2021 3:25 PM EDT Plan of Treatment Upcoming Encounters Date Type Department Care Team (Late st Contact Info) Description 09/12/2025 Orders Only [facility] [address] [phone] Florence Vasquez ARNP [address] [phone] Chronic kidney disease stage 2; Renal mass; Hypertensive disorder; Persistent proteinuria 09/28/2025 3:00 PM EST Office Visit [facility] [address] [phone] Florence Vasquez ARNP [address] [phone] Health Maintenance Due Date Last Done Comments Hepatitis B Vaccine (1 of 3 - 19+ 3-dose series) 1986 Pneumococcal Vaccine: 50+ Ye ars (1 of 2 - PCV) 1986 Colorectal Cancer Screening: Annual FOBT 2016 Colorectal Cancer Screening: Colonoscopy 2016 Colorectal Cancer Screening: Sigmoidoscopy 2016 Influenza Vaccine (#1) 2025 , 07/25/2020, 08/08/2019, Additional history exists Procedures Procedure Name Priority Date/Time Associated Diagnosis Comments CBC AND DIFFERENTIAL Routine 08/18/2025 11:04 AM EST Chronic kidney disease stage 2 Hypertensive disorder Hypo-osmolality and hyponatremia Liver transplant status (HCC) PROTEIN / CREATININE RATIO, URINE Routine 08/18/2025 11:04 AM EST Chronic kidney disease stage 2 Hypertensive disorder Hypo-osmolality and hyponatremia Liver transplant status (HCC) URINE ALBUMIN / CREATININE RATIO Routine 08/18/2025 11:04 AM EST Chronic kidney disease stage 2 Hypertensive disorder Hypo-osmolality and hyponatremia Liver transplant status (HCC) RENAL FUNCTION PANEL Routine 08/18/2025 11:04 AM EST Chronic kidney disease stage 2 Hypertensive disorder Hypo-osmolality and hyponatremia Liver transplant status (HCC) URINE ALBUMIN / CREATININE RATIO Routine 06/24/2025 11:19 AM EDT PROTEIN / CREATININE RATIO, URINE Routine 06/24/2025 11:19 AM EDT PTH, INTACT Routine 06/24/2025 10:17 AM EDT CBC Routine 06/24/2025 10:17 AM EDT RENAL FUNCTION PANEL Routine 06/24/2025 10:17 AM EDT from Last 3 Months Results * (ABNORMAL) Urine Protein / creatinine ratio (08/18/2025 11:04 AM EST) Only the most recent of2 resultswithin the time period is included. Creatinine, Ur 127.5 Not Estab. mg/dL [facility] Protein, Ur 53.9 Not Estab. mg/dL [facility] Urine Protein/Creati nine Ratio 423(H) 0 - 200 mg/g creat [facility] Urine Urine specimen obtained by clean catch procedure / Unknown 08/18/2025 11:04 AM EST 08/18/2025 [facility] LAB URINE ORDERABLES Final Result Performing Organization Address [facility] de Phone Number [facility] [address] [place] [address] * (ABNORMAL) Urine Albumin / Creatinine Ratio (08/18/2025 11:04 AM EST) Only the most recent of2 resultswithin the time period is included. Pathologist [facility] Albumin, Urine 263.2 Not Estab. ug/mL [facility] Albumin/Creatin ine Ratio 206(H) 0 - 29 mg/g creat [facility] Comment: Normal: 0 - 29 Moderately increased: 30 - 300 Severely increased: >300 Urine Urine specimen obtained by clean catch procedure / Unknown 08/18/2025 11:04 AM EST 08/18/2025 [facility] LAB URINE ORDERABLES Final Result Performing Organization Address [facility] de Phone Number [facility] [address] [place] [address] * (ABNORMAL) CBC and differential (08/18/2025 11:04 AM EST) Pathologist [facility] WBC 9.8 3.4 - 10.8 x10E3/uL [facility] RBC 4.97 4.14 - 5.80 x10E6/uL [facility] Comment: CBC results reported were obtained after the specimen had been warmed to 37 degrees C. This may indicate the presence of Cold Agglutinins. Hemoglobin 15.7 13.0 - 17.7 g/dL [facility] Hematocrit 45.8 37.5 - 51.0 % [facility] MCV 92 79 - 97 fL [facility] MCH 31.6 26.6 - 33.0 pg [facility] MCHC 34.3 31.5 - 35.7 g/dL [facility] RDW 13.5 11.6 - 15.4 % [facility] Platelets 259 150 - 450 x10E3/uL [facility] Neutrophils Relative 74 Not Estab. % [facility] Lymphocytes Relative 19 Not Estab. % [facility] Monocytes 5 Not Estab. % [facility] Eosinophils Relative 1 Not Estab. % [facility] Basophils Relative 0 Not Estab. % [facility] Neutrophils Absolute 7.4(H) 1.4 - 7.0 x10E3/uL [facility] Lymphocytes Absolute 1.8 0.7 - 3.1 x10E3/uL [facility] Monocytes Absolute 0.5 0.1 - 0.9 x10E3/uL [facility] Eosinophils Absolute 0.1 0.0 - 0.4 x10E3/uL [facility] Basophils Absolute 0.0 0.0 - 0.2 x10E3/uL [facility] Immature Granulocytes 1 Not Estab. % [facility] Immature Grans (Absolute) 0.1 0.0 - 0.1 x10E3/uL [facility] Blood Venous blood / Unknown 08/18/2025 11:04 AM EST 08/18/2025 us Florence Vasquez [facility] LAB BLOOD ORDERABLES Final Result [facility] [address] [place] [address] * (ABNORMAL) Renal function panel (08/18/2025 11:04 AM EST) Only the most recent of2 resultswithin the time period is included. Glucose 140(H) 70 - 99 mg/dL [facility] BUN 22 6 - 24 mg/dL [facility] Creatinine 1.17 0.76 - 1.27 mg/dL [facility] eGFR CKD-EPI CR 2020 72 >59 mL/min/1.7 3 [facility] BUN/Creatinine Ratio 19 9 - 20 [facility] Sodium 134 134 - 144 mmol/L [facility] Potassium 4.6 3.5 - 5.2 mmol/L [facility] Chloride 99 96 - 106 mmol/L [facility] Bicarbonate (CO2) 25 20 - 29 mmol/L [facility] Calcium 9.5 8.7 - 10.2 mg/dL [facility] Albumin 4.4 3.8 - 4.9 g/dL [facility] Phosphorus 3.4 2.8 - 4.1 mg/dL [facility] Blood Venous blood / Unknown 08/18/2025 11:04 AM EST 08/18/2025 Florence Vasquez [facility] LAB BLOOD ORDERABLES Final Result [facility] [address] [place] [address] * CBC (06/24/2025 10:17 AM EDT) WBC 6.8 3.4 - 10.8 x10E3/uL [facility] RBC 4.90 4.14 - 5.80 x10E6/uL [facility] Comment: CBC results reported were obtained after the specimen had been warmed to 37 degrees C. This may indicate the presence of Cold Agglutinins. Hemoglobin 15.0 13.0 - 17.7 g/dL [facility] Hematocrit 45.9 37.5 - 51.0 % [facility] MCV 94 79 - 97 fL [facility] MCH 30.6 26.6 - 33.0 pg [facility] MCHC 32.7 31.5 - 35.7 g/dL [facility] RDW 13.4 11.6 - 15.4 % [facility] Platelets 260 150 - 450 x10E3/uL [facility] 06/24/2025 10:1 7 AM EDT 06/24/2025 Florence Vasquez [facility] LAB BLOOD ORDERABLES Final Result [facility] [address] [place] [address] * PTH, Intact (06/24/2025 10:17 AM EDT) Pathologist [facility] PTH 44 15 - 65 pg/mL [facility] 06/24/2025 10:1 7 AM EDT 06/24/2025 Florence Vasquez [facility] LAB BLOOD ORDERABLES Final Result [facility] [address] [place] [phone] from Last 3 Months Insurance [employer] Medicaid [employer] Medicaid Care Teams Salon Supervisor Relationship Specialty Start Date End Date Elvia Ozuna NP [address] [place] [address], [address] [place] [address] PCP - General Nurse Practitioner 08/23/25
--- OUTSIDE RECORDS SUMMARY | 2025-09-02 18:45 | XMS_ITS | Encounter Summary ---
Author Organization [facility] Address [address] [place] [address] Phone Care Team Providers Care Trauma Doctor Name Role Phone LaithShavonElvia NP Primary Care Provider [phone] Encounter Details Date Type Department Care Team (Late st Contact Info) Description 01/02/2021 Orders Only [facility] [address] [place] [address] Provider, MD Saúl Social History Tobacco Use Types Packs/Day Years Used Date Smoking Tobacco: Never Alcohol Use Standard Drinks/Week Comments No 0 (1 standard drink = 0.6 oz pur e alcohol) Sex and Gender Information Value Date Recorded Sex Assigned at Not on file Legal Sex Male 4:40 PM EST Gender Identity Not on file Sexual Orientation Not on file documented as of this encounter Plan of Treatment Upcoming Encounters Date Type Department Care Team (Late st Contact Info) Description 09/12/2025 Orders Only [facility] [address] [phone] Florence Vasquez ARNP [address] [phone] Chronic kidney disease stage 2; Renal mass; Hypertensive disorder; Persistent proteinuria 09/28/2025 3:00 PM EST Office Visit [facility] [address] [phone] Florence Vasquez ARNP [address] [phone] documented as of this encounter Procedures Procedure Name Priority Date/Time Associated Diagnosis Comments EXT RESULT ENTRY Routine 12/28/2020 EXT RESULT ENTRY Routine 12/15/2020 EXT RESULT ENTRY Routine 11/25/2020 EXT RESULT ENTRY Routine 11/16/2020 documented in this encounter Results * EXT RESULT ENTRY (12/28/2020) [facility] Provider MD LAB BLOOD ORDERABLES Tisha l Result * EXT RESULT ENTRY (12/15/2020) [facility] Provider MD LAB BLOOD ORDERABLES Tisha l Result * EXT RESULT ENTRY (11/25/2020) [facility] Provider MD LAB BLOOD ORDERABLES Tisha l Result * EXT RESULT ENTRY (11/16/2020) [facility] Provider MD LAB BLOOD ORDERABLES Tisha l Result documented in this encounter Visit Diagnoses Not on filedocumented in this encounter Care Teams Trauma Doctor Relationship Specialty Start Date End Date Elvia Ozuna NP [address] [place] [address], [address] [place] [address] PCP - General Nurse Practitioner 08/23/25 documented as of this encounter
--- OUTSIDE RECORDS SUMMARY | 2025-09-02 18:45 | XMS_ITS | Encounter Summary ---
Author Organization [facility] Address [address] [place] [address] Phone Care Team Providers Care Meteorology Teacher Name Role Phone LaithElvia YADIRA Primary Care Provider [phone] Encounter Details Date Type Department Care Team (Late Contact Info) Description 11/15/2020 Orders Only [facility] [address] [place] [address] Ramila Llamas MD Chronic kidney disease stage 2; H/O: liver recipient (HCC) Social History Tobacco Use Types Packs/Day Years Used Date Smoking Tobacco: Never Alcohol Use Standard Drinks/Week Comments No 0 (1 standard drink = 0.6 oz pur e alcohol) Sex and Gender Information Value Date Recorded Sex Assigned at Not on file Legal Sex Male 4:40 PM EST Gender Identity Not on file Sexual Orientation Not on file COVID-19 Exposure Response Date Recorded In the last month, have you been in contact with someone who was confirmed or suspected to have Coronavirus / COVID-19? No / Unsure 11/08/2020 2:30 PM EST documented as of this encounter Plan of Treatment Upcoming Encounters Date Type Department Care Team (Late st Contact Info) Description 09/12/2025 Orders Only [facility] [address] [facility] [address] [place] [address] Florence Vasquez ARNP [address] [facility] [address] [place] [address] Chronic kidney disease stage 2; Renal mass; Hypertensive disorder; Persistent proteinuria 09/28/2025 3:00 PM EST Office Visit [facility] [address] [facility] [address] [place] [address] Florence Vasquez ARNP [address] [facility] [address] [place] [address] documented as of this encounter Procedures Procedure Name Priority Date/Time Associated Diagnosis Comments URINE PROTEIN, 24 HOUR W/O CREATININE Routine 11/11/2020 9:30 AM EST Chronic kidney disease stage 2 H/O: liver recipient (HCC) documented in this encounter Results * Urine Protein, 24 hour w/o Creatinine (11/11/2020 9:30 AM EST) Protein, Ur 8 (0-12) MG/DL [facility] 24 Hr Total Protein 0.16 (0.04-0.23) GM/24HR [facility] Comment: Testing performed or reported by [facility], a Service of [facility], [address] [place] [id number] Venkatesh Ramirez MD, Water Treatment Plant Engineer Urine specimen (specimen) Urine specimen obtained by clean catch procedure / Unknown 11/11/2020 9:30 AM EST 11/11/2020 10:57 AM EST us Ramila Llamas MD LAB URINE ORDERABLES Final Resu lt [facility] documented in this encounter Visit Diagnoses Diagnosis Chronic kidney disease stage 2 H/O: liver recipient (HCC) Chronic kidney disease stage 2 Renal mass Hypertensive disorder Persistent proteinuria documented in this encounter Care Teams Meteorology Teacher Relationship Specialty Start Date End Date Elvia Ozuna NP [address] [place] [address], [address] [place] [address] PCP - General Nurse Practitioner 08/23/25 documented as of this encounter
--- OUTSIDE RECORDS SUMMARY | 2025-09-02 18:45 | XMS_ITS | Clinical Summary ---
Author Organization [address] [place] [address] Address [address] [place] [address] Phone Care Team Providers Care Manager Global Communications Name Role Phone Hamida Remy MD Primary Care Provider [phone] Allergies Active Allergy Reactions Criticality Noted Date Comments Prednisone Other 11/04/2018 PT STATES BLOOD SUGAR GOES UP. Sulfa (Sulfonamide Antibiotics) Unknown 05/26/2025 Sulfamethoxazole-Trimethopr im Unknown 05/26/2025 Social History Tobacco Use Types Packs/Day Years Used Date Smoking Tobacco: Never Assessed Sex and Gender Information Value Date Recorded Sex Assigned at Not on file Legal Sex Male 7:06 AM EST Gender Identity Not on file Sexual Orientation Not on file Last Filed Vital Signs Vital Sign Reading Time Taken Comments Blood Pressure - - Pulse - - Temperature - - Respiratory Rate - - Oxygen Saturation - - Inhaled Oxygen Concentration - - Weight 69.9 kg (154 lb 3.2 oz) 01/16/2023 2:36 P M EDT Height 165 cm (5' 4.96 ) 01/16/2023 2:36 PM EDT Body Mass Index 25.69 01/16/2023 2:36 PM EDT Plan of Treatment Health Maintenance Due Date Last Done Comments Colorectal Cancer Screening: Colonoscopy 1967 Diabetes: Annual Foot Exam 1977 Diabetes: Annual Retina Eye Exam 1977 DTaP,Tdap,and Td Vaccines (1 - Tdap) 1986 Hepatitis A Vaccines (1 of 2 - Risk 2-dose series) 1986 Hepatitis B Vaccines (1 of 3 - 19+ 3-dose series) 1986 Pneumococcal Vaccine: 50+ Years (1 of 2 - PCV) 1986 Zoster Vaccines (1 of 2) 1986 RSV Immunization Adult Patients (1 - Risk 50-74 years 1-dose series) 2017 Diabetes: Annual GFR (Glomerular Filtration Rate) 11/03/2020 11/03/2019 Cholesterol Screening (Lipid Panel) 10/20/2023 HIV Screening 10/20/2023 Hepatitis C Screening 10/20/2023 Social Influencers of Health Screening 10/20/2023 Depression Screening 09/16/2024 COVID-19 Vaccine ( season) 2025 05/09/2021, 12/08/2020, 11/17/2020 Influenza Vaccine (#1) 2025 , 07/25/2020, 08/08/2019, Additional history exists Diabetes: Blood Sugar Control Test (HGBA1C) 05/26/2025 Hypertension/CHF/CAD Annual BMP Blood Test 05/26/2025 11/03/2019 Diabetes: Annual Urine Albumin-Creatinine Ratio (uACR) 02/26/2026 02/26/2025 HIB Vaccines Aged Out No longer eligi ble based on patient's age to complete this topic HPV Vaccines Aged Out No longer eligi ble based on patient's age to complete this topic IPV Vaccines Aged Out No longer eligi ble based on patient's age to complete this topic MMR Vaccines Aged Out No longer eligi ble based on patient's age to complete this topic Meningococcal ACWY Vaccine Aged Out N o longer eligible based on patient's age to complete this topic Meningococcal B Vaccine Aged Out No l onger eligible based on patient's age to complete this topic RSV Immunization Patients Under 20 months Aged Out No longer eligible based on patient's age to complete this topic Varicella Vaccines Aged Out No longer eligible based on patient's age to complete this topic Insurance [employer] [address] [place] [address] Care Teams Manager Global Communications Relationship Specialty Start Date End Date Hamida Remy MD [address] [place] [address] [place] [phone] PCP - General 11/21/22
--- OUTSIDE RECORDS SUMMARY | 2025-09-02 18:46 | XMS_ITS | Continuity of Care Document ---
Author Organization [facility] Address [address] [place] [address] Care Team Providers Care Talent Acquisition Partner Name Role Phone Bree Sims MD Unavailable [phone] Hamida Remy MD Primary Care Provider [phone] Encounters Date Type Department Care Team Description 07/17/2024 Refill [facility] [address] [place] [phone] Asher Norton MD E-prescribing Refill Request 11/25/2023 Refill [facility] [address] [place] [phone] Michael Andrade PA E-prescribing Refill Request 03/18/2023 Refill [facility] [address] [place] [address] Michael Andrade PA E-prescribing Refill Request 01/28/2023 Telephone Central Registration [address] [place] [address] Ashleigh Nice MD Insurance Question (Pa, //Patient: Pilar Valverde / //Patient insurance is not in network with [facility], patient now has [facility] [employer] [facility] [facility] /) 11/21/2022 Orders Only NON FC SA NON FC UNK Provider, Unknown 11/19/2022 Telephone [facility] [address] [facility] [address] [place] [address] Ashleigh Nice MD Labs/orders 11/06/2022 Orders Only [facility] [address] [facility] [address] [place] [address] Florence Orona NP 11/06/2022 Orders Only [facility] [address] [facility] [address] [place] [address] Ashleigh Nice MD 11/06/2022 10:00 AM EST Consult (Initial) [facility] [address] [facility] [address] [place] [address] Ashleigh Nice MD Benign prostatic hyperplasia with nocturia (Primary Dx); Erectile dysfunction, unspecified erectile dysfunction type; Low testosterone; Prostate cancer screening information given during patient encounter 07/12/2022 12:30 PM EDT Consult (Initial) [facility] [address] [facility] [address] [place] [address] Florence Orona NP Erectile dysfunction, unspecified erectile dysfunction type (Primary Dx); Low testosterone 05/23/[address] [address] Michael Andrade, PA E-prescribing Refill Request 05/10/[address] [address] Michael Andrade, PA E-prescribing Refill Request 01/18/2021 Travel 01/18/2021 1:00 PM EDT Consult (Initial) [address] [address] Asher Norton MD 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) 04/05/[address] [address] Michael Andrade PA Refill Request 08/05/[address] [address] Michael Andrade, PA Refill Request 08/05/2019 Refill [facility] [address] [address] RaymondMichael, PA E-prescribing Refill Request 02/18/[address] [address] RaymondMichael, PA E-prescribing Refill Request 12/24/[address] [address] RaymondMichael, PA Refill Request 12/23/[address] [address] RaymondMichael, PA E-prescribing Refill Request 10/30/[address] [address] RaymondMichael, PA E-prescribing Refill Request 10/22/2017 11:30 AM EST Office Visit [address] [address] RaymondMichael, PA Seborrheic keratoses (Primary Dx) 10/14/[address] [address] RaymondMichael, PA Refill Request 10/14/[address] [address] RaymondMichael, PA E-prescribing Refill Request 08/26/[address] [address] RaymondMichael, PA E-prescribing Refill Request 06/20/[address] [address] RaymondMichael, PA E-prescribing Refill Request 01/29/2017 4:00 PM EDT Office Visit [address] [place] [address] Michael Andrade PA Longitudinal nail ridge (Primary Dx) 06/20/[address] [address] Michael Andrade PA Results 06/15/2016 3:30 PM EDT Consult (Initial) [address] [address] Michael Andrade PA Seborrheic dermatitis (Primary Dx); Neoplasm of uncertain behavior of skin Allergies Active Allergy Reactions Criticality Noted Date Comments Sulfa Antibiotics Urticarial Rash Low 06/15/2016 Other reaction(s): Rash Amoxicillin-Pot Clavulanate 11/08/2020 Other reaction(s): Other (see comments) Pt states he is not allergic to amoxicillin. Prednisone 01/18/2021 Pt states Prednisone made his sugar level go up. Medications KETOCONAZOLE, TOPICAL, 2 % ShampooIndicati ons:Seborrheic dermatitis SHAMPOO WITH EVERY DAY, LEAVE IN FOR 5 MINUTES THEN RINSE DIRECTED 120 mL 5 9 Active Aripiprazole (ABILIFY) 2 MG tablet Take 1 tablet by mouth Active buPROPion HCl ER, SR, (WELLBUTRIN SR) 100 MG 12 hr tablet Take 1 tablet by mouth Active Mirtazapine (REMERON) 45 MG tablet Take 45 mg by mouth every night at bedtime. 1 Active traZODone HCl (DESYREL) 100 MG tablet TAKE 3 TABLETS BY MOUTH EVERY NIGHT 1 Active NIFEdipine CR Osmotic (PROCARDIA XL) 30 MG 24 hr tablet Take 30 mg by mouth 1 Active Metoprolol Succinate (TOPROL-XL) 50 MG 24 hr tablet Take 50 mg by mouth 1 Active Vitamin B-12 (VITAMIN B-12) 1000 MCG tablet Take 1,000 mcg by mouth 1 (one) time each day 1 Active B Complex Cap Take 1 tablet by mouth 1 Active Tacrolimus (PROGRAF) 1 MG capsule Take 3 capsules by mouth Active Vitamin D3 (VITAMIN D-3) 50 MCG (1999 UT) capsule Take 2,000 Units by mouth 1 (one) time each day 1 Active Mycophenolate Mofetil (CELLCEPT) 500 MG tablet Take 500 mg by mouth 2 (two) times a day 1 Active FREESTYLE LITE test strip USE TO TEST BLOOD SUGAR BID UTD 0 Active FreeStyle Lancets lancets U UTD TO TEST BID 0 Active KETOCONAZOLE, TOPICAL, (NIZORAL) 2 % shampooIndicati ons:Seborrheic dermatitis APPLY TOPICALLY EVERY DAY. LEAVE IN FOR 5 MINUTES THEN RINSE DIRECTED 120 mL 5 4 Active Active Problems No known active problems Immunizations Immunization Administration Dates Next Due COVID-19, mRNA (Pfizer Pre F all 2022) Monovalent, 30 mcg/0.3 ml 05/09/2021,12/08/2020,11/17/2020 Influenza (SEASONAL) - 09/11/2021,2019,08/08/2019,2017,07/05/2017,08/27/2015,07/01/2014,1 ,06/16/2012,05/22/2011, 010 Influenza,injectable,quad,Prsrv Fr 07/26/2016 Social History Smoking Status as of 09/02/2025 Tobacco Use Types Packs/Day Years Used Date Smoking Tobacco: Never Assessed Intimate Partner Violence Answer Date R ecorded Fear of Current or Ex-Partner Not on file Emotionally Abused Not on file 05/08/2023 Physically Abused Not on file 05/08/2023 Sexually Abused Not on file 05/08/2023 Feel Safe at Home Not on file 05/08/2023 Sex and Gender Information Value Date Recorded Sex Assigned at Not on file Legal Sex Male 1:58 PM EST Gender Identity Not on file Sexual Orientation Not on file Plan of Treatment Not on file Procedures * Due to [place] state law, this organization might not be sharing negative HIV tests. Procedure Name Priority Date/Time Associated Diagnosis Comments UNSPECIFIED DIAGNOSTIC PROCE 11/21/2022 PROSTATE SPECIFIC ANTIGEN (PSA) TOTAL, SERUM Routine 11/06/2022 10:00 AM EST Benign prostatic hyperplasia with nocturia SURGICAL PATHOLOGY DERM Routine 06/15/2016 3:30 AM EDT Seborrheic dermatitis Results * Due to [place] state law, this organization might not be sharing negative HIV tests. * UNSPECIFIED DIAGNOSTIC PROCE (11/21/2022) us Unknown Provider LABORATORY Final Result * PROSTATE SPECIFIC ANTIGEN (PSA) TOTAL, SERUM (11/06/2022 10:00 AM EST) PSA 0.37 < OR = 4.00 ng/mL [facility] Comment: The total PSA value from this assay system is standardized against the WHO standard. The test result will be approximately 20% lower when compared to the equimolar-standardized total PSA (Lori Larry). Comparison of serial PSA results should be interpreted with this fact in mind. This test was performed using the Siemens chemiluminescent method. Values obtained from different assay methods cannot be used interchangeably. PSA levels, regardless of value, should not be interpreted as absolute evidence of the presence or absence of disease. 11/06/2022 10:0 0 AM EST 11/06/2022 9:39 PM EST Narrative Resulting Agency Comment [id number] us Ashleigh Nice MD LABORATORY Final Resu lt Performing Organization Address City/State/[facility] Co de Phone Number [facility] [address] [place] [address] * DERMATOPATHOLOGY REPORT (06/15/2016 3:30 AM EDT) FINAL DIAGNOSIS Verrucous keratosis with features of excoriation. [facility] Comment:{A DIAGNOSIS {[id number]) Specimen source SKIN SHAVE LEFT CHEEK [facility] Comment:{A SOURCE {[id number]) Gross Observation SEE NOTE [facility] Comment: {A GROSS DESCRIPTION {[id number]) Container labeled with patient's name and/or patient's id Pilar Fontanez. Specimen is received in formalin and consists of a davis shave biopsy measuring 0.7 x 0.5 x 0.3 cm. Specimen is inked, trisected, and submitted in toto in cassettes A1 and A2 with tips in cassette A2. LS/GTG 06/18/2016 Gross exam(s) performed at: [facility] [address] [address] Logistics Lead: KT SOL MD Clinical information ? TRAUMATIZED NEVUS, BCC, SEBACEOUS HYPERPLASIA, EVALUATE MARGINS [facility] Comment:{CLINICAL INFORMATIO N {[id number]) Pathologist Name Shavon Lindsey M.D., Ph.D., Board Certified in Anatomic Pathology and Dermatopathology (electronic signature) Consulting Pathologist [facility] [address] [place] [address] [facility] Comment:{PATHOLOGIST {[id number]) 06/15/2016 3:30 AM EDT 06/16/2016 3:17 AM EDT us Berenice Hugo MD PATHOLOGY-INTERFACED Final Re sult Performing Organization Address City/State/[facility] Co de Phone Number [facility] [address] [place] [address] Visit Diagnoses Diagnosis Start Date Seborrheic dermatitis Seborrheic dermatitis, unspecified 06/15/2016 Neoplasm of uncertain behavior of skin 06/15/2016 Longitudinal nail ridge Other specified disease of nail 01/29/2017 Seborrheic dermatitis Seborrheic dermatitis, unspecified 06/20/2017 Seborrheic dermatitis Seborrheic dermatitis, unspecified 08/26/2017 Seborrheic dermatitis Seborrheic dermatitis, unspecified 10/14/2017 Seborrheic keratoses 10/22/2017 Seborrheic dermatitis Seborrheic dermatitis, unspecified 10/30/2017 Seborrheic dermatitis Seborrheic dermatitis, unspecified 12/23/2017 Seborrheic dermatitis Seborrheic dermatitis, unspecified 12/24/2017 Seborrheic dermatitis Seborrheic dermatitis, unspecified 02/18/2019 Seborrheic dermatitis Seborrheic dermatitis, unspecified 08/05/2019 Seborrheic dermatitis Seborrheic dermatitis, unspecified 04/05/2020 Chondrodermatitis nodularis helicis of left ear 01/18/2021 Seborrheic dermatitis Seborrheic dermatitis, unspecified 05/10/2021 Seborrheic dermatitis Seborrheic dermatitis, unspecified 05/23/2022 Erectile dysfunction, unspecified erectile dysfunction type 07/12/2022 Low testosterone Other testicular hypofunction 07/12/2022 Erectile dysfunction, unspecified erectile dysfunction type 11/06/2022 Low testosterone Other testicular hypofunction 11/06/2022 Benign prostatic hyperplasia with nocturia 11/06/2022 Benign prostatic hyperplasia with nocturia 11/06/2022 Erectile dysfunction, unspecified erectile dysfunction type 11/06/2022 Low testosterone Other testicular hypofunction 11/06/2022 Prostate cancer screening information given during patient encounter Special screening for malignant neoplasm of prostate 11/06/2022 Seborrheic dermatitis Seborrheic dermatitis, unspecified 03/18/2023 Seborrheic dermatitis Seborrheic dermatitis, unspecified 11/25/2023 Seborrheic dermatitis Seborrheic dermatitis, unspecified 07/17/2024 Care Teams Talent Acquisition Partner Relationship Specialty Start Date End Date Hamida Remy MD [facility] Physician [address] [address] PCP - General Family Medicine 11/06/22 Bree Sims MD [address] [place] [address] [place] [address] Cardiology 03/08/16
--- OUTSIDE RECORDS SUMMARY | 2025-09-02 18:46 | XMS_ITS | Patient Health Record ---
Author Organization [facility] Address [address] [place] [address] Care Team Providers Care Blade Changer Name Role Phone Levi CORRALES, Bree Primary Care Provider Yovany Campos Jr Unavailable Allergies Allergen (clinical drug ingredient) Drug/Non Drug Allergy documented on EMR Reaction Allergy Type Onset Date Status PredniSONE Unknown Drug Allergy Active Reason For Referral No Information Medications Medication SIG (Take, Route, Frequency, Duration) Notes Start Date End Date Status Ketoconazole Active ALPRAZolam Active buPROPion HCl ER (SR) Active Mycophenolate Mofetil Active traZODone HCl Active Mirtazapine Active ARIPiprazole Active Metoprolol Tartrate Active Prograf Active Anusol-HC 25 MG Suppository 1 suppositor y Rectal at night; Duration: 30 day(s) 05/15/2018 Active NIFEdipine ER Osmotic Release Active Aspir-81 Active Social History Tobacco Use: Social History Observation Description Date Details (start date - stop date) Never Smoker NA - NA Social History Drugs/Alcohol: Social Info Question Answer Notes Alcohol Screen Did you have a drink containing alcohol in the past year? No Points 0 Interpretation Negative Tobacco Use: Social Info Question Answer Notes Tobacco Use/Smoking Patient is a nonsmoker Additional Details Category Social Info Options Details Miscellaneous: Marital status: single Occupation: sub teacher Problems Problem Type SNOMED Code ICD Code Onset Dates Problem Status W/U Status Risk Notes Problem Colon cancer screening (443728292) Colon cancer screening (Z12.11) Active confirmed Problem Long-term current use of antiplatelet drug (509182760675596) termite control representative (current) use of aspirin (Z79.82) Active confirmed Plan Of Treatment Future Test Test Name Order Date COLONOSCOPY 02/13/2018 Insurance Providers Payer Name Payer Address Payer Phone Subscriber Number Group Number Insured Name Patient Relationship to Insured Coverage Start Date Coverage End Date MEDICAID OF [facility] [address] [place] [phone] [id number] RABIA LEMONS Self - patient is the insured Medical (General) History Medical History History ICD Code anxiety/depression liver transplant hypertension Surgical History Surgery Date(Month/Year) liver transplant 1992, in [facility], currently following with [facility] transplant group.
--- OUTSIDE RECORDS SUMMARY | 2025-09-02 18:46 | XMS_ITS | Encounter Summary ---
Author Organization [facility] Address [address] [place] [address] Care Team Providers Care Dealer Sales Manager Name Role Phone Bree Sims MD Primary Care Provider [phone] Bree Sims MD Unavailable [phone] Amira Stroud MD Primary Care Provider [phone] Amira Stroud MD Primary Care Provider [phone] Hamida Remy MD Primary Care Provider [phone] Reason for Visit * Reason Comments E-prescribing Refill Request Encounter Details Date Type Department Care Team (Late st Contact Info) Description 02/18/2019 Refill [facility] [address] [place] [address] Michael Andrade PA [address] [place] [address] E-prescribing Refill Request Social History Tobacco Use Types Packs/Day Years Used Date Smoking Tobacco: Never Smokeless Tobacco: Never Alcohol Use Standard Drinks/Week Comments Not Asked 0 (1 standard drink = 0.6 oz pur e alcohol) Sex and Gender Information Value Date Recorded Sex Assigned at Not on file Legal Sex Male 1:58 PM EST Gender Identity Not on file Sexual Orientation Not on file documented as of this encounter Miscellaneous Notes * Telephone Encounter - Mehnaz Nye LPN - 02/18/2019 11:31 AM EDT Special Concerns: none Faxed medication renewal request(s) for Pilar Fontanez 53 y.o. male received from pharmacy. Entered this pharmacy as preferred pharmacy for patient. Last CPE with this specialty: Not Found Last OV with this specialty: 10/22/2017 Next OV: No future appointments. Pertinent lab results: No labs suggested for any medication orders signed or pended in this encounter. Refresh if any orders changed. Allergies: Sulfa antibiotics BP Readings from Last 1 Encounters: No data found for BP There are no active problems to display for this patient. Current Outpatient Prescriptions on File Prior to Visit Medication Sig Dispense Refill ??? KETOCONAZOLE, TOPICAL, 2 % Shampoo SHAMPOO EVERY DAY. LEAVE IN FOR 5 MINUTES THEN RINSE DIRECTED 120 mL 11 documented in this encounter Plan of Treatment Not on file documented as of this encounter Visit Diagnoses Diagnosis Seborrheic dermatitis Seborrheic dermatitis, unspecified documented in this encounter Care Teams Dealer Sales Manager Relationship Specialty Start Date End Date Bree Sims MD [address] [place] [address] [place] [address] PCP - General Cardiology 03/08/16 01/15/21 Amira Stroud MD [facility] [address] [place] [address] PCP - General Family Medicine 01/16/21 01/16/21 Amira Stroud MD [address] [place] [address] PCP - General Family Medicine 01/17/21 08/20/[address] [facility] [address] [place] [address] PCP - General Family Medicine 11/06/22 Bree Sims MD [address] [place] [address] [place] [address] Cardiology 03/08/16 documented as of this encounter
--- OUTSIDE RECORDS SUMMARY | 2025-09-02 18:46 | XMS_ITS | Clinical Summary ---
Author Organization [facility] Address [address] [place] [address] Care Team Providers Care Securities Dealer Name Role Phone Maximus Amira Mayito Primary Care Provider [phone] Allergies Active Allergy Reactions Criticality Noted Date Comments Sulfamethoxazole-Trime thoprim Unknown Prednisone Other (see comments) 11/04/2018 PT STATES BLOOD SUGAR GOES UP. Sulfa (Sulfonamide Antibiotics) Unknown Medications NIFEdipine XL (PROCARDIA XL) 30 mg tablet Nifedical XL 30 MG TB24 takes one BID Refills: 0 Started -March-2014 Active 4 Active buPROPion SR (WELLBUTRIN SR) 150 mg tablet Wellbutrin SR 150 MG Oral Tablet Extended Release 12 Hour TAKES ONE TWICE A DAY Refills: 0 Started -March-2014 Active 4 Active Freestyle Lite test strips USE TO TEST BLOOD SUGAR BID UTD 3 8 Active FREESTYLE LITE METER meter USE UTD 0 8 Active ketoconazole (NIZORAL) 2% shampoo 11 8 Active Freestyle lancets 28 gauge U UTD TO TEST BID 3 8 Active ARIPiprazole (ABILIFY) 2 mg tablet TK 1 T PO ONCE A DAY 1 8 Active sildenafiL (VIAGRA) 100 mg tablet TAKE 1 TABLET BY MOUTH DAILY NEEDED FOR SEXUAL ACTIVITY. ADMINISTER 60 MINUTES BEFORE INTENDED ACTIVITY 1 Active Vitamins B Complex capsule Take 1 capsule by mouth daily. 1 Active cyanocobalamin 1,000 mcg tablet Take 1,000 mcg by mouth daily. 1 Active cholecalciferol (VITAMIN D3) 2,000 unit capsule Take 1 capsule by mouth daily. 1 Active mirtazapine (REMERON) 45 mg tablet Take 45 mg by mouth nightly. at bedtime. 1 Active metoprolol succinate XL (TOPROL XL) 50 mg tablet Take 50 mg by mouth daily. 1 Active traZODone (DESYREL) 100 mg tablet TAKE 3 TABLETS BY MOUTH EVERY NIGHT 1 Active Prograf 1 mg capsuleIndicati ons:Liver replaced by transplant Take 2 capsules (2 mg total) by mouth 2 times a day. 120 capsule 11 2 Active Active Problems Problem Noted Date Diagnosed Date Renal lesion 07/26/2016 Pulmonary nodule 07/26/2016 Non-smoker 07/26/2016 Cough 07/26/2016 Hypertension, benign 03/30/2016 Liver replaced by transplant 03/30/2016 Acute liver failure with hepatic coma 03/30/2016 Lateral epicondylitis 03/17/2014 Gout 03/17/2014 Immunizations Immunization Administration Dates Next Due Influenza, Injectable, Quadrivalent, Preservativ e Free 07/26/2016 Family History Medical History Relation Name Comments Other Father Family History of epilepsy Other Mother Family history of No pertinent family history Relation Name Status Comments Father Mother Social History Tobacco Use Types Packs/Day Years Used Date Smoking Tobacco: Never Smokeless Tobacco: Never Tobacco Cessation:Counseling Given: Not Answered Comments:: Sex and Gender Information Value Date Recorded Sex Assigned at Not on file Legal Sex Male 12:10 AM EDT Gender Identity Not on file Sexual Orientation Not on file Last Filed Vital Signs Vital Sign Reading Time Taken Comments Blood Pressure 149/85 05/18/2022 7:58 AM EDT Pulse 88 05/18/2022 7:58 AM EDT Temperature 36.3 C (97.4 F) 05/18/2022 7:58 AM EDT Respiratory Rate 18 05/18/2022 7:58 AM EDT Oxygen Saturation 99% 05/18/2022 7:58 AM EDT Inhaled Oxygen Concentration - - Weight 71.2 kg (157 lb) 05/18/2022 7:58 AM EDT Height 167.6 cm (5' 6 ) 04/07/2021 9:51 AM EDT Body Mass Index 25.34 04/07/2021 9:51 AM EDT Plan of Treatment Health Maintenance Due Date Last Done Comments Simon 1967 Colon Cancer Screening 1967 Colonoscopy 1967 FOBT / Fit Test 1967 HIV Screening 1967 Hepatitis C Screening 1967 Sigmoidoscopy 1967 Hepatitis B Vaccines (1 of 3 - 19+ 3-dose series) 1986 Pneumococcal Vaccine: 50+ Ye ars (1 of 2 - PCV) 1986 Zoster Vaccines (1 of 2) 1986 DTaP,Tdap,and Td Vaccines (1 - Tdap) 1989 Alcohol/Substance Use Screening 09/16/2024 Depression Screening and Follow-Up 09/16/2024 Social Drivers of Health Ivy ual Screening 09/16/2024 Influenza Vaccine (#1) 2025 , 09/11/2021, 09/11/2021, Additional history exists COVID-19 Vaccine (4 - 2024-2 6 season) 2025 05/09/2021, 12/08/2020, 11/17/2020 Basic Metabolic Panel 06/24/2026 06/24/2025 , 11/11/2020, 11/03/2019, Additional history exists Procedures * Due to [place] [employer] law, this organization might not be sharing negative HIV tests. Procedure Name Priority Date/Time Associated Diagnosis Comments COMPREHENSIVE METABOLIC PANEL Routine 11/03/2019 9:03 AM EST History of liver transplant from Last 3 Months or Most Recently Relevant to Health Maintenance Results * Due to [place] [employer] law, this organization might not be sharing negative HIV tests. * (ABNORMAL) Comprehensive Metabolic Panel (11/03/2019 9:03 AM EST) NA 138 135 - 145 mmol/L 11/03/2019 9:44 AM EST [facility] K 4.3 3.5 - 5.3 mmol/L 11/03/2019 9:44 AM EST [facility] Cl 104 97 - 110 mmol/L 11/03/2019 9:44 AM EST [facility] CO2 26 24 - 32 mmol/L 11/03/2019 9:44 AM EST [facility] Anion Gap 8 5 - 15 11/03/2019 9:44 AM [facility] Glucose 130(H) 70 - 99 mg/dL 11/03/2019 9:44 AM [facility] Creatinine 1.05 0.60 - 1.30 mg/dL 11/03/2019 9:44 AM [facility] eGFR Non- 81(L) >=90 mL/min/BSA 11/03/2019 9:44 AM [facility] eGFR >90 >=90 mL/min/BSA 11/03/2019 9:44 AM [facility] Comment: Units = mL/min/1.73 m2 Glomerular Filtration Rate (GFR) is estimated based on the CKD-EPI Creatinine Equation (2009). Stage Description GFR 1 Normal >=90 mL/min/BSA 2 Mildly decreased GFR 60-89 mL/min/BSA 3 Moderately decreased GFR 30-59 mL/min/BSA 4 Severely decreased GFR 15-29 mL/min/BSA 5 Kidney Failure <15 mL/min/BSA Calcium 9.1 8.7 - 10.7 mg/dL 11/03/2019 9:44 AM [facility] Total Protein 7.1 6.0 - 8.0 g/dL 11/03/2019 9:44 AM [facility] Albumin 4.4 3.5 - 4.8 g/dL 11/03/2019 9:44 AM [facility] Bilirubin, Total 0.4 0.3 - 1.2 mg/dL 11/03/2019 9:44 AM [facility] Alkaline Phosphatase 73 30 - 115 U/L 11/03/2019 9:44 AM [facility] AST 20 10 - 40 U/L 11/03/2019 9:44 AM [facility] ALT 26 10 - 40 U/L 11/03/2019 9:44 AM [facility] BUN 20 7 - 23 mg/dL 11/03/2019 9:44 AM [facility] Blood Structure of peripheral vein / Unknown Venipuncture / Unknown 11/03/2019 9:03 AM EST 11/03/2019 9:15 AM EST us Cornelia Page MD LAB BLOOD ORDERABLES Final Result [facility] [address] [place] [address], [place] from Last 3 Months or Most Recently Relevant to Health Maintenance Insurance [employer] Care Teams Securities Dealer Relationship Specialty Start Date End Date Amira Stroud [address] [place] [address] PCP - General Family Medicine 10/07/20
--- OUTSIDE RECORDS SUMMARY | 2025-09-02 18:46 | XMS_ITS | Encounter Summary ---
Author Organization [facility] Address [address] [address] Phone Care Team Providers Care Criminal Investigator Customs Name Role Phone Elvia Ozuna NP Primary Care Provider [phone] Encounter Details Date Type Department Care Team (Late st Contact Info) Description 08/26/2025 Telephone [facility] [address] [address] Florence Vasquez ARNP [address] [address] Social History Tobacco Use Types Packs/Day Years Used Date Smoking Tobacco: Former Cigars Smokeless Tobacco: Never Alcohol Use Standard Drinks/Week Comments No 0 (1 standard drink = 0.6 oz pur e alcohol) Sex and Gender Information Value Date Recorded Sex Assigned at Not on file Legal Sex Male 4:40 PM EST Gender Identity Not on file Sexual Orientation Not on file documented as of this encounter Miscellaneous Notes * Telephone Encounter - Florecita Jason - 08/31/2025 1:52 PM EST MRI is scan under media on 08/27/25 * Telephone Encounter - Roxanne Heard - 08/26/2025 4:17 PM EST Hi there, Patient called inquiring about MRI results, would like a call back he states he is NERVOUS . [phone] Thanks documented in this encounter Plan of Treatment Upcoming Encounters Date Type Department Care Team (Late st Contact Info) Description 09/12/2025 Orders Only [facility] [address] [address] Florence Vasquez ARNP [address] [address] Chronic kidney disease stage 2; Renal mass; Hypertensive disorder; Persistent proteinuria 09/28/2025 3:00 PM EST Office Visit [facility] [address] [address] Florence Vasquez ARNP [address] [address] documented as of this encounter Visit Diagnoses Not on filedocumented in this encounter Care Teams Criminal Investigator Customs Relationship Specialty Start Date End Date Elvia Ozuna NP [address] [place] [address], [address] [place] [address] PCP - General Nurse Practitioner 08/23/25 documented as of this encounter
--- OUTSIDE RECORDS SUMMARY | 2025-09-02 18:46 | XMS_ITS | Encounter Summary ---
Author Organization [facility] Address [address] [place] [address] Care Team Providers Care Office Systems Technology Instructor Name Role Phone Bree Sims MD Unavailable [phone] Hamida Remy MD Primary Care Provider [phone] Reason for Visit * Reason Comments Insurance Question Ia, Patient: Pilar Valverde insurance is not in network with [facility], patient now has [employer] ([employer]), Encounter Details Date Type Department Care Team ([facility] st Contact Info) Description 01/28/2023 Telephone Central Registration [address] [place] [address] Ashleigh Nice MD [address] [facility] [address] [place] [address] Insurance Question (Hi, //Patient: Pilar Valverde / //Patient insurance is not in network with [facility], patient now has [employer] ([employer]), /) Social History Tobacco Use Types Packs/Day Years [...] encounter Miscellaneous Notes * Telephone Encounter - Clara Montiel - 01/28/2023 10:26 AM EDT Patient insurance is not in network with [facility], patient now has [employer] ([employer]) documented in this encounter Plan of Treatment Not on file documented as of this encounter Visit Diagnoses Not on filedocumented in this encounter Care Teams Office Systems Technology Instructor Relationship Specialty Start Date End Date Hamida Remy MD [facility] Physician [address] [address] PCP - General Family Medicine 11/06/22 Bree Sims MD [address] [place] [address] [place] [address] Cardiology 03/08/16 documented as of this encounter
--- OUTSIDE RECORDS SUMMARY | 2025-09-02 18:46 | XMS_ITS | Encounter Summary ---
Author Organization [facility] Address [address] [place] [address] Care Team Providers Care 3Rd Grade Reading Teacher Name Role Phone Bree Sims MD Unavailable [phone] Hamida Remy MD Primary Care Provider [phone] Encounter Details Date Type Department Care Team ([facility] st Contact Info) Description 11/06/2022 Orders Only [facility] Urology [address] [facility] [address] [place] [address] Ashleigh Nice MD [address] [facility] [address] [place] [address] Social History Tobacco Use Types Packs/Day Years [...] as of this encounter Plan of Treatment Not on file documented as of this encounter Procedures * Due to [place] [employer] law, this organization might not be sharing negative HIV tests. Procedure Name Priority Date/Time Associated Diagnosis Comments PROSTATE SPECIFIC ANTIGEN (PSA) TOTAL, SERUM Routine 11/06/2022 10:00 AM EST Benign prostatic hyperplasia with nocturia documented in this encounter Results * Due to [place] [employer] law, this organization might not be sharing negative HIV tests. * PROSTATE SPECIFIC ANTIGEN (PSA) TOTAL, SERUM [...] 9:39 PM EST Narrative Resulting Agency Comment [id number] us Ashleigh Nice MD LABORATORY Final Resu lt [facility] [address] [place] [address] documented in this encounter Visit Diagnoses Diagnosis Benign prostatic hyperplasia with nocturia documented in this encounter Care Teams 3Rd Grade Reading Teacher Relationship Specialty Start Date End Date Hamida Remy MD [facility] Physician [address] [address] PCP - General Family Medicine 11/06/22 Bree Sims MD [address] [place] [address] [place] [address] Cardiology 03/08/16 documented as of this encounter
--- OUTSIDE RECORDS SUMMARY | 2025-09-02 18:46 | XMS_ITS | Encounter Summary ---
Author Organization [facility] Address [address] [place] [address] Care Team Providers Care Finish Patcher Name Role Phone Bree Sims MD Primary Care Provider [phone] Bree Sims MD Unavailable Amira Stroud MD Primary Care Provider [phone] Amira Stroud MD Primary Care Provider [phone] Hamida Remy MD Primary Care Provider [phone] Reason for Visit * Reason Comments E-prescribing Refill Request Encounter Details Date Type Department Care Team (Late st Contact Info) Description 12/23/2017 Refill [facility] [address] [place] [address] Michael Andrade PA [address] [place] [address] E-prescribing Refill Request Social History Tobacco Use [...] unspecified documented in this encounter Care Teams Finish Patcher Relationship Specialty Start Date End Date Bree Sims MD [address] [place] [address] [address] [place] [id number] PCP - General Cardiology 03/08/16 01/15/21 Amira Stroud MD [facility] [address] [place] [address] PCP - General Family Medicine 01/16/21 01/16/21 Amira Stroud MD [address] [place] [address] PCP - General Family Medicine 01/17/21 08/20/22 Hamida Remy MD [facility] [address] [address] PCP - General Family Medicine 11/06/22 Bree Sims MD [address] [place] [address] [place] [address] Cardiology 03/08/16 documented as of this encounter
--- OUTSIDE RECORDS SUMMARY | 2025-09-02 18:46 | XMS_ITS | Encounter Summary ---
Author Organization [facility] Address [address] [place] [address] Care Team Providers Care Dynamics Ax Solution Architect Name Role Phone Bree Sims MD Primary Care Provider [phone] Bree Sims MD Unavailable [phone] Amira Stroud MD Primary Care Provider [phone] Amira Stroud MD Primary Care Provider [phone] Hamida Remy MD Primary Care Provider [phone] Reason for Visit * Reason Comments E-prescribing Refill Request Encounter Details Date Type Department Care Team (Late st Contact Info) Description 08/05/2019 Refill [facility] [address] [place] [address] Michael Andrade PA [address] [place] [address] E-prescribing Refill Request Social History Tobacco Use [...] encounter Miscellaneous Notes * Telephone Encounter - Digna Lea RN - 08/05/2019 1:07 PM EST Any special requests or concerns? none Faxed/E-prescribed medication renewal request(s) for Pilar Fontanez 54 y.o. male received from pharmacy. Unable to confirm pharmacy with pt, most recent pharmacy on file was used. Last CPE with this specialty: Not Found Last OV with this specialty: Not Found Next OV: No future appointments. Pertinent lab results: No labs suggested for any medication orders signed or pended in this encounter. Refresh if any orders changed. Allergies: Sulfa antibiotics BP Readings from Last 1 Encounters: No data found for BP There are no active problems to display for this patient. Current Outpatient Medications on File Prior to Visit Medication Sig Dispense Refill ??? KETOCONAZOLE, TOPICAL, 2 % Shampoo SHAMPOO WITH EVERY DAY, LEAVE IN FOR 5 MINUTES THEN RINSE ASDIRECTED 120 mL 3 ??? KETOCONAZOLE, TOPICAL, 2 % Shampoo SHAMPOO EVERY DAY. LEAVE IN FOR 5 MINUTES THEN RINSE DIRECTED 120 mL 11 documented in this encounter Plan of Treatment Not on file documented as of this encounter Visit Diagnoses Diagnosis Seborrheic dermatitis Seborrheic dermatitis, unspecified documented in this encounter Care Teams Dynamics Ax Solution Architect Relationship Specialty Start Date End Date Bree Sims MD [address] [place] [address] [place] [address] PCP - General Cardiology 03/08/16 01/15/21 Amira Stroud MD [facility] [address] [place] [address] PCP - General Family Medicine 01/16/21 01/16/21 Amira Stroud MD [address] [place] [address] PCP - General Family Medicine 01/17/21 08/20/22 Hamida Remy MD [facility] [address] [place] [address] PCP - General Family Medicine 11/06/22 Bree Sims MD [address] [place] [address] [place] [address] Cardiology 03/08/16 documented as of this encounter
== END 2025-09-02 16:05 | disposition home or self-care (01) ==
LOC: HO.HUSH 14:37
PROVIDERS: PCP Family Medicine; Visit Provider Urology
DX: C64.9 Malignant neoplasm of unspecified kidney, except renal pelvis (principal)
CPT/HCPCS: 99214

== ENCOUNTER → 2025-09-02 14:36 | Outpatient (BNVA) | payer OTHER, SELFPAY | PROVIDERS: PCP Family Medicine; Visit Provider Urology | DX: Z71.2 Person consulting for explanation of examination or test findings (principal); C64.9 Malignant neoplasm of unspecified kidney, except renal pelvis | CPT/HCPCS: 99212 ==